=== PATIENT | female | born 1955 | race Caucasian/White ===

== ENCOUNTER 2019-07-22 12:47 | Outpatient (CLI) | payer MEDICAID, SELFPAY ==
--- NOTE | 2019-07-22 13:07 | CT_ITS ---
WS: [id number] CT LUMBAR SPINE TECHNIQUE: Noncontrast CT of the lumbar spine with coronal and sagittal reformatted images. CLINICAL INFORMATION: PSEUDOARTHROSIS OF LUMBAR SPINE COMPARISON: CT April 23, 2019 DLP: 1695.[address] scans at [facility] use at least one of these dose optimization techniques: automat ed exposure control; mA and/or kV adjustment per patient size (includes targeted exams where dose is matched to clinical indication); or iterative reconstruction. FINDINGS: Normal lumbar alignment. No acute compression. Postoperative changes pedicle screw fixation L4-5 with dorsal laminectomy defects. Interconnecting rods. Slight anterolisthesis L4 on L5 measuring 4 mm is stable. No evidence of hardware loosening. L1-L2: Normal. L2-L3: Normal. L3-L4: Mild disc bulging with endplate ridging. Moderate facet arthropathy. Mild central canal stenos is. Foramen are patent. L4-L5: Grade 1 anterolisthesis L4 on L5 is stable. Mild left and no significant right foraminal narro wing. Spinal canal is patent. Decompressive laminectomy. L5-S1: Mild disc bulging and osteophytic ridging. Vacuum disc phenomenon. Moderate right and mild lef t bony foraminal narrowing. Spinal canal is patent. Adrenal glands are normal. Aortic calcification. Visualized pelvic bony structures: Normal. Paravertebral soft tissues: Normal. CT/CT lumbar spine wo con* [id number] IMPRESSION: 1. Stable postoperative changes L4-5 pedicle screw fixation with decompressive laminectomies and dorsal lateral bone graft material. No evidence of hardware loosening. 2. Stable grade 1 anterolisthesis L4 on L5 measuring 4 mm. 3. Mild central canal stenosis L3-4. 4. Mild to moderate bony foraminal narrowing worse at right L5-S1.
== END 2019-07-22 12:48 | disposition home or self-care (01) ==
LOC: RAD 12:53
PROVIDERS: Family Provider Family Medicine; PCP Family Medicine; Visit Provider Licensed Practical Nurse
DX: S32.009K Unspecified fracture of unspecified lumbar vertebra, subsequent encounter for fracture with nonunion (principal); X58.XXXD Exposure to other specified factors, subsequent encounter; M48.061 Spinal stenosis, lumbar region without neurogenic claudication
CPT/HCPCS: 72131

== ENCOUNTER → 2019-09-04 12:41 | Outpatient (BNVA) | payer MEDICAID, SELFPAY | PROVIDERS: Family Provider Family Medicine; PCP Family Medicine; Visit Provider Nurse Practitioner Psychiatric/Mental Health | DX: F32.4 Major depressive disorder, single episode, in partial remission (principal); F17.200 Nicotine dependence, unspecified, uncomplicated | CPT/HCPCS: 99214 ==

== ENCOUNTER 2019-10-28 13:51 | Outpatient (CLI) | payer MEDICAID, SELFPAY ==
--- NOTE | 2019-10-28 14:00 | CT_ITS ---
WS: [id number] CT LUMBAR SPINE TECHNIQUE: Noncontrast CT of the lumbar spine with coronal and sagittal reformatted images. CLINICAL INFORMATION: f/u lumbar spinal fusion COMPARISON: July 22, 2019 DLP: 1802.[address] scans at [facility] use at least one of these dose optimization techniques: automat ed exposure control; mA and/or kV adjustment per patient size (includes targeted exams where dose is matched to clinical indication); or iterative reconstruction. FINDINGS: Normal lumbar alignment. No acute compression fractures. Postoperative changes pedicle screw fixation L4-5 with dorsal laminectomy defects and interconnecting rods. Slight anterolisthesis L4 on L5 measu ring 4 mm is stable. No evidence of hardware loosening. L1-L2: Normal. L2-L3: Normal. L3-L4: Mild disc bulging with endplate ridging. Moderate facet arthropathy. Moderate central canal st enosis. Foramen are patent. L4-L5: Grade 1 anterolisthesis L4 on L5 is stable. Mild left and no significant right foraminal narro wing. Spinal canal is patent. Decompressive laminectomy. L5-S1: Mild disc bulging and osteophytic ridging. Vacuum disc phenomenon. Moderate right and mild lef t bony foraminal narrowing. Spinal canal is patent. Aortic calcification. No significant aneurysm. Adrenal glands are normal. CT/CT lumbar spine wo con* [id number] IMPRESSION: 1. Stable postoperative changes L4-5 pedicle screw fixation with decompressive laminectomies and dorsal lateral bone graft material. No evidence of hardware l oosening. 2. Stable grade 1 anterolisthesis L4 on L5 measuring 4 mm. 3. Moderate central canal stenosis L3-4. 4. Mild to moderate bony foraminal narrowing described above worse at right L5- S1. 5. No significant interval changes since July 22, 2019
== END 2019-10-28 13:52 | disposition home or self-care (01) ==
LOC: RADWPI 13:54
PROVIDERS: Family Provider Family Medicine; PCP Family Medicine; Visit Provider Specialist
DX: Z98.1 Arthrodesis status (principal); M48.061 Spinal stenosis, lumbar region without neurogenic claudication; M48.07 Spinal stenosis, lumbosacral region
CPT/HCPCS: 72131

== ENCOUNTER → 2019-12-11 07:58 | Outpatient (BNVA) | payer MEDICAID, SELFPAY | PROVIDERS: Family Provider Family Medicine; PCP Family Medicine; Visit Provider Nurse Practitioner Psychiatric/Mental Health | DX: F32.4 Major depressive disorder, single episode, in partial remission (principal); G89.29 Other chronic pain; F41.9 Anxiety disorder, unspecified | CPT/HCPCS: 99212 ==

== ENCOUNTER → 2020-03-02 09:14 | Outpatient (BNVA) | payer MEDICAID, SELFPAY | PROVIDERS: Family Provider Family Medicine; PCP Family Medicine; Visit Provider Nurse Practitioner Psychiatric/Mental Health | DX: F32.4 Major depressive disorder, single episode, in partial remission (principal); G89.29 Other chronic pain; F41.9 Anxiety disorder, unspecified | CPT/HCPCS: G0463 ==

== ENCOUNTER → 2020-05-18 11:11 | Outpatient (BNVA) | payer MEDICAID, SELFPAY | PROVIDERS: Family Provider Family Medicine; PCP Family Medicine; Visit Provider Family Medicine Adult Medicine | DX: Z00.00 Encounter for general adult medical examination without abnormal findings (principal) | CPT/HCPCS: 88175 ==

== ENCOUNTER → 2020-05-25 07:35 | Outpatient (BNVA) | payer MEDICAID, SELFPAY | PROVIDERS: Family Provider Family Medicine; PCP Family Medicine; Visit Provider Nurse Practitioner Psychiatric/Mental Health | DX: F32.4 Major depressive disorder, single episode, in partial remission (principal) | CPT/HCPCS: 99211; G0463 ==

== ENCOUNTER → 2020-06-08 10:18 | Outpatient (BNVA) | payer MEDICAID, SELFPAY | PROVIDERS: Family Provider Family Medicine; PCP Family Medicine Adult Medicine; Visit Provider Licensed Practical Nurse | DX: M51.17 Intervertebral disc disorders with radiculopathy, lumbosacral region (principal); M43.16 Spondylolisthesis, lumbar region; Z98.1 Arthrodesis status; F17.210 Nicotine dependence, cigarettes, uncomplicated | CPT/HCPCS: 99213 ==

== ENCOUNTER 2020-06-22 10:51 | Outpatient (CLI) | payer MEDICAID, SELFPAY ==
--- NOTE | 2020-06-22 11:30 | MM_ITS ---
WS: [id number] BILATERAL SCREENING DIGITAL MAMMOGRAM WITH CAD HISTORY: wellness COMPARISON: 01/03/2019 and 01/01/2018 Bilateral CC and MLO views submitted. Computer aided detection analyzed. Breast composition: There are scattered areas of fibroglandular density. No suspicious masses, microc alcifications or architectural distortion. Benign calcification in the central LEFT breast. MM/[place] [id number] IMPRESSION: BI-RADS: 2-Benign FOLLOW UP: 1 Year Follow-up
== END 2020-06-22 10:52 | disposition home or self-care (01) ==
LOC: RADSHAW 10:53
PROVIDERS: PCP Family Medicine Adult Medicine; Visit Provider Family Medicine Adult Medicine
DX: Z12.31 Encounter for screening mammogram for malignant neoplasm of breast (principal)
CPT/HCPCS: 77067

== ENCOUNTER 2020-06-28 10:31 | Outpatient (CLI) | payer MEDICAID, SELFPAY ==
--- NOTE | 2020-06-28 10:36 | MR_ITS ---
WS: [id number] MRI LUMBAR SPINE WITH CONTRAST TECHNIQUE: Sagittal T1, T2 and STIR imaging. Axial T1 and T2 imaging. Post gadolinium imaging was obt ained. CLINICAL INFORMATION: M51.17 - Intervertebral disc disorders with radiculopathy, lumbosacral region COMPARISON: MRI 7 FINDINGS: Normal lumbar alignment. No acute compression. Postoperative changes pedicle screw fixation L4-5. Dis c desiccation worse at this level. Postoperative changes are new since 2018 with spinal canal decompr ession. L1-L2: Normal. L2-L3: Mild annular bulging. Mild facet arthropathy. Spinal canal and foramen are patent. L3-L4: Mild annular bulging with mild central canal stenosis. Impingement on the left greater than ri ght subarticular recess. Moderate facet arthropathy. Foramen are patent. L4-L5: Pedicle screw fixation with laminectomy defects. Spinal canal and foramen are patent. L5-S1: Pedicle screw fixation. Disc osteophytic ridging. Moderate right and no significant left anastacio inal narrowing. Slight encroachment traversing S1 nerve roots. Mild facet arthropathy. Normal postoperative enhancement. MR/MR lumbar spine wo/w con [id number] IMPRESSION: 1. Postoperative changes pedicle screw fixation L4-5 with decompressive kristin ctomy defects new since 2018. 2. Mild disc bulging L3-4 progressed compared to previous with mild narrowing of the left greater than right subarticular recess and mild central canal steno sis. Moderate facet arthropathy at this level. 3. Spinal canal is patent at the L4-L5 and L5-S1 surgical levels. 4. Moderate right L5-S1 bony foraminal narrowing.
== END 2020-06-28 10:32 | disposition home or self-care (01) ==
LOC: RADWPI 10:34
PROVIDERS: PCP Family Medicine Adult Medicine; Visit Provider Licensed Practical Nurse
DX: M51.17 Intervertebral disc disorders with radiculopathy, lumbosacral region (principal); M43.16 Spondylolisthesis, lumbar region; Z98.1 Arthrodesis status
CPT/HCPCS: 72158; A9579

== ENCOUNTER → 2020-08-10 08:01 | Outpatient (BNVA) | payer MEDICAID, SELFPAY | PROVIDERS: PCP Family Medicine Adult Medicine; Visit Provider Nurse Practitioner Psychiatric/Mental Health | DX: F32.4 Major depressive disorder, single episode, in partial remission (principal); F41.9 Anxiety disorder, unspecified; G89.29 Other chronic pain | CPT/HCPCS: 99213 ==

== ENCOUNTER → 2020-11-04 08:39 | Outpatient (BNVA) | payer MEDICAID, SELFPAY | PROVIDERS: PCP Family Medicine Adult Medicine; Visit Provider Nurse Practitioner Psychiatric/Mental Health | DX: F32.4 Major depressive disorder, single episode, in partial remission (principal); F41.9 Anxiety disorder, unspecified; G89.29 Other chronic pain | CPT/HCPCS: 99214 ==

== ENCOUNTER → 2021-01-07 11:50 | Outpatient (BNVA) | payer MEDICAID, SELFPAY | PROVIDERS: PCP Family Medicine Adult Medicine; Visit Provider Family Medicine Adult Medicine | DX: E78.5 Hyperlipidemia, unspecified (principal); I10 Essential (primary) hypertension; Z13.6 Encounter for screening for cardiovascular disorders; Z79.899 Other long term (current) drug therapy | CPT/HCPCS: 80053; 80061; 83036; 84443; 85025 ==

== ENCOUNTER → 2021-01-17 07:19 | Outpatient (BNVA) | payer MEDICAID, SELFPAY | PROVIDERS: PCP Family Medicine Adult Medicine; Visit Provider Nurse Practitioner Psychiatric/Mental Health | DX: F32.4 Major depressive disorder, single episode, in partial remission (principal); F41.9 Anxiety disorder, unspecified; G89.29 Other chronic pain | CPT/HCPCS: 99214 ==

== ENCOUNTER → 2021-02-14 07:51 | Outpatient (BNVA) | payer MEDICAID, SELFPAY | PROVIDERS: PCP Family Medicine Adult Medicine; Visit Provider Nurse Practitioner Psychiatric/Mental Health | DX: F32.4 Major depressive disorder, single episode, in partial remission (principal); F41.9 Anxiety disorder, unspecified; G89.29 Other chronic pain | CPT/HCPCS: 99214 ==

== ENCOUNTER 2021-03-30 10:29 | Emergency (ER) | payer MEDICAID, SELFPAY ==
[2021-03-30 10:45] VITALS: BP 168/71; PULSE 91; RESP 16; TEMP 36.7; O2SAT 95; BMI 25.4
--- NOTE | 2021-03-30 11:14 | XR_ITS ---
WS: [id number] Exam: XR ribs LT mn 3V w CXR1V [id number] Date/Time of Exam: 03/30/2021 11:14 AM Reason For Exam: pain No acute left rib fracture or pneumothorax. The lungs are hyperinflated and clear. Normal cardiomedia stinal structures. No pleural effusions. XR/XR ribs LT mn 3V w CXR1V [id number] IMPRESSION: 1. No acute cardiopulmonary finding. 2. No acute left rib fracture or pneumothorax.
--- NOTE | 2021-03-30 11:15 | ECG_ITS ---
[facility] Test Date: 2021-03-30 Pat Name: Polina Merida Department: Room: Gender: Female Store Person: : 1955 Requested By: Ty Barbosa Order Number: [id number] Garrett MD: Shivani Alexander M.D. Measurements Intervals [place] Rate: 68 P: 63 OR: 154 QRS: 6 QRSD: 70 T: 49 QT: 387 QTc: 412 Interpretive Statements SINUS RHYTHM ANTEROSEPTAL MYOCARDIAL INFARCTION , OF INDETERMINATE AGE [40+ ms Q WAVE IN V1-V4] No previous ECG available for comparison Electronically Signed On 03-30-2021 21:30:05 CDT by Shivani Alexander M.D. [email or web address] Travel/store/NU/[id number] f
--- NOTE | 2021-03-30 11:20 | W.ED.GENADLT ---
HPI - General Adult General: Chief complaint: General Medical Stated complaint: Knot on left side, nausea Time Seen by Provider: 03/30/21 10:31 History of Present Illness: HPI narrative: 65-year-old female presents emergency room complaining of abdominal discomfort describes having a knot on the left side of her upper abdomen and her abdomen swelling. States she woke up with the pain. She denies any dysuria urgency or frequency no vomiting or diarrhea. No fever sweats or chills. No radiation of the pain. Onset (ago): day(s) Location: chest Radiation: non-radiation Severity: mild Pain Consistency: intermittent Relieving factors: rest Exacerbating factors: movement Associated symptoms: Reports chest pain (Left lower ribs); Deny confusion, cough, diaphoresis, decreased appetite, dyspnea, fevers/chills, headache(s), malaise, nausea, rash, palpitations, seizures, vomiting or weakness Treatments prior to arrival: none Review of Systems Const: Denies: malaise or diaphoresis ENMT: Denies: throat pain, ear or mastoid pain, nasal discharge or nasal congestion Card: Reports: chest pain (Left lower ribs); Denies: palpitations Resp: Denies: dyspnea GI: Denies: nausea or vomiting : Denies: flank pain, difficulty voiding, dysuria, urinary frequency or urinary urgency Skin/Breast: Denies: rash Neuro: Denies: headache(s) or confusion PFS ED PFSH: Medical History Acquired hypothyroidism Allergic rhinitis due to allergen Anxiety and depression Benign positional vertigo Bipolar disorder Chronic congestion of paranasal sinus COPD (chronic obstructive pulmonary disease) Dyslipidemia GERD (gastroesophageal reflux disease) Hyperlipidemia Hypertension Intervertebral disc disorder with radiculopathy of lumbosacral region Major depressive disorder in partial remission Nicotine dependence She rolls her own cigarettes and usually smokes at least 6/day, as noted on her last visit note. Today she does not quantify the amount. She is not interested in smoking cessation at this time. Pseudarthrosis following spinal fusion Spondylolisthesis, lumbar region Stress incontinence Surgical History H/O tubal ligation (~1989) H/O: hysterectomy (~1990) History of lumbar fusion (10/21/18) 10/21/2018 Dr. Emani Horowitz. L4-L5 laminectomy/pedicle screw-jorge fixation/transverse process fusion. Hx of tonsillectomy (~1963) S/P lumbar spinal fusion Family History Mother Hypertension Heart disease Cancer Liver and Ovary Father Hypertension Heart disease Stroke Brother Stroke Sister Cancer Breast Family/Other Cancer Paternal 1st cousin, colon cancer Grandmother Cancer Maternal Liver and Ovary Denies family history of Anesthesia complication Bleeding disorder Social History Smoking and tobacco status: current every day smoker cigarettes Alcohol intake: never Lives independently: Yes Household members: spouse Marital status: Current occupational status: disabled History of recent travel: No Physical Exam Const: COMMON NORMALS: no acute distress GENERAL APPEARANCE: cooperative and comfortable ORIENTATION/CONSCIOUSNESS: Yes awake, Yes oriented to person, Yes oriented to place and Yes oriented to time HENMT: COMMON NORMALS: normocephalic, atraumatic and hearing grossly normal bilaterally HEAD & SCALP: normocephalic and atraumatic Neck/C-Spine: COMMON NORMALS: no JVD Chest: CHEST: Yes localized rib tenderness with anteroposterior compression (Left lower ribs at the anterior axillary line) Resp: COMMON NORMALS: normal respiratory effort, No retractions, No use of accessory muscles and clear to auscultation bilaterally AUSCULTATION: clear to auscultation bilaterally Cardio: COMMON NORMALS: no JVD, regular rate, regular rhythm and No murmurs present (Cardio) RATE: regular rate RHYTHM: regular rhythm GI: COMMON NORMALS: Soft to palpation and No hepatosplenomegaly present AUSCULTATION: Yes normoactive bowel sounds PALPATION: Yes Soft to palpation, No Tenderness to palpation present (GI), No Guarding due to palpation present (GI) and Yes No hepatosplenomegaly present Extremity: COMMON NORMALS: normal to inspection, capillary refill normal, no clubbing, cyanosis or edema, no calf tenderness and no pedal edema Neuro: SENSORIUM/ORIENTATION: Yes oriented to person, Yes oriented to place and Yes oriented to time Skin: COMMON NORMALS: no rashes or lesions noted GENERAL SKIN EXAM: no rashes or lesions noted Course Vital Signs: Vital signs: Vital Signs Temperature 98.2 F 03/30/21 12:34 Pulse Rate 89 03/30/21 12:34 Respiratory Rate 16 03/30/21 10:45 Blood Pressure 164/73 03/30/21 12:34 Pulse Oximetry 96 03/30/21 12:34 MDM - General Adult MDM Narrative: Medical decision making narrative: Labs imaging and EKG reviewed as on the chart. Pain is reproducible with palpation along the lower ribs. We will go and discharge the patient home she did have a mild cystitis which we will treat her with Macrobid. Any worsening or change symptoms return. Lab Data: Labs: Lab Results 03/30/21 03/30/21 03/30/21 11:53 11:53 12:04 WBC 7.7 10^3/uL 10^3/ uL (4.0-10.0) RBC 4.58 10^6/uL 10^6 /uL (4.1-5.3) Hgb 13.4 g/dL g/dL (11.5-15.3) Hct 41.2 % % (37.0-47.0) MCV 90.0 fl fl (81-99) MCH 29.3 pg pg (28.0-34.0) MCHC 32.5 g/dL g/dL (30.0-36.0) RDW 15.9 % H % (12.1-15.1) Plt Count 317 10^3/cmm 10^3 /cmm (130-400) MPV 10.7 fL H fL (7.4-10.4) Neut % (Auto) 62.7 % % Lymph % (Auto) 25.2 % % Gates % (Auto) 9.9 % % Eos % (Auto) 1.4 % % Baso % (Auto) 0.5 % % Neut # (Auto) 4.79 10^3/uL 10^3 /uL (1.8-7.7) Lymph # (Auto) 1.9 10^3/uL 10^3/ uL (0.8-4.8) Gates # (Auto) 0.8 10^3/uL 10^3/ uL (0.2-0.9) Eos # (Auto) 0.1 10^3/uL 10^3/ uL (0.0-0.8) Baso # (Auto) 0.0 10^3/uL 10^3/ uL (0.0-0.1) Nucleated RBC % (a uto) 0 % % Nucleated RBCs # 0.0 /100WBC /100W BC Sodium 136 mmol/L mmol/L (136-145) Potassium 4.1 mmol/L mmol/L (3.5-5.1) Chloride 102 mmol/L mmol/L (98-107) Carbon Dioxide 24 mmol/L mmol/L (22-29) Anion Gap 14.1 (5-19) BUN 11 mg/dL mg/dL (8-23) Creatinine 0.6 mg/dL mg/dL (0.5-0.9) GFR Calculation 101.0 mL/min mL/m in (90-130) Glucose 95 mg/dL mg/dL (65-115) Calculated Osmolal ity 281 mOsm/kg L mOs m/kg (285-295) Calcium 9.6 mg/dL mg/dL (8.5-10.5) Total Bilirubin 0.2 mg/dL mg/dL (0.15-1.2) AST 22 U/L U/L (0-32) ALT 14 U/L U/L (0-33) Alkaline Phosphata se 70 IU/L IU/L (35-105) Total Protein 7.8 g/dL g/dL (6.6-8.7) Albumin 4.2 g/dL g/dL (3.5-5.2) Globulin 3.6 g/dL g/dL (1.3-4.6) Urine Color Straw (Yellow) Urine Appearance Sl hazy (CLEAR) Urine pH 6.5 (5-7) Ur Specific Gravit y 1.005 (1.005-1.030) Urine Protein Neg (Negative) Urine Glucose (UA) Norm (Normal) Urine Ketones Negative (Negative) Urine Blood Neg (Negative) Urine Nitrate Negative (Negative) Urine Bilirubin Neg (Negative) Urine Urobilinogen Norm mg/dL mg/dL (Negative) Ur Leukocyte Erica ase 1+ H (Negative) Urine RBC 0-4 /hpf H /hpf (0-2) Urine WBC 10-15 /hpf H /hpf (0-5) Ur Squamous Epith Cells 0-4 /hpf H /hpf (0-5) Amorphous Sediment Not Reportable Urine Bacteria 4+ /hpf H /hpf (NONE) Discharge Plan Discharge Patient Disposition: Home Clinical Impression: Rib pain on left side, Cystitis Condition: Stable Prescriptions: New Macrobid 100 mg capsule 100 mg PO Q12H 7 Days Qty: 14 RF: 0 No Action aspirin 81 mg tablet,delayed release (DR/EC) 81 mg PO DAILY RF: 0 naproxen sodium 220 mg tablet 440 mg PO BID PRN (Reason: Pain) RF: 0 meclizine 25 mg tablet 25 mg PO TID PRN (Reason: dizziness) Qty: 90 RF: 5 vitamin B complex [B Complex-Vitamin B12] Tablet 1 tab PO EVERY OTHER DAY RF: 0 cholecalciferol (vitamin D3) 25 mcg (1,000 unit) capsule 25 mcg PO EVERY OTHER DAY RF: 0 metoprolol succinate 25 mg tablet extended release 24 hr 25 mg PO DAILY Qty: 30 RF: 5 clonazepam 0.5 mg tablet 0.25 mg PO BID Qty: 30 RF: 2 venlafaxine 75 mg capsule,extended release 24hr 75 mg PO QAM Qty: 30 RF: 1 lisinopril 20 mg tablet 20 mg PO DAILY Qty: 30 RF: 3 simvastatin 40 mg tablet 40 mg PO DAILY Qty: 90 RF: 2 fluticasone propionate 50 mcg/actuation spray,suspension See Rx Instructions .ROUTE .COMPLEX Qty: 16 RF: 5 oxybutynin chloride 10 mg tablet extended release 24hr See Rx Instructions .ROUTE .COMPLEX Qty: 90 RF: 2 Asparagus Extract 1 cap PO EVERY OTHER DAY RF: 0 potassium 99 mg Tablet 99 mg PO EVERY OTHER DAY RF: 0 omeprazole 20 mg Capsule,Delayed Release(Dr/Ec) 20 mg PO DAILY RF: 0 Discharge Orders: Discharge ED (Routine); Ordered 03/30/21 Ordered By: Ty Saunders Referrals: John Hall MD [Primary Care Provider] - Discharge Diet: Usual diet Discharge Activity: Increase activity as tolerated Patient Instructions: Opioid Safety Activity Restrictions/Additional Instructions: Tylenol or ibuprofen for the rib pain. Started on antibiotics for the cystitis. Increase fluids follow-up with primary care doctor. Coding Level of Care Code ED Ultrasound Applications Specialist for Chg Fwd Exam Comprehensive
[2021-03-30 11:58] LABS: Basophils % 0.5 %; Eosinophils # 0.1 10^3/uL (0.0-0.8); Eosinophils % 1.4 %; Hematocrit 41.2 % (37.0-47.0); Hemoglobin 13.4 g/dL (11.5-15.3); Lymphocytes # 1.9 10^3/uL (0.8-4.8); Lymphocytes % 25.2 %; Mean Corpuscular HGB Conc 32.5 g/dL (30.0-36.0); Mean Corpuscular Hemoglobin 29.3 pg (28.0-34.0); Mean Platelet Volume 10.7 fL (7.4-10.4); Monocytes # 0.8 10^3/uL (0.2-0.9); Monocytes % 9.9 %; Neutrophils # 4.79 10^3/uL (1.8-7.7); Neutrophils % 62.7 %; Nucleated Red Blood Cells % 0 %; Platelet Count 317 10^3/cmm (130-400); Red Blood Count 4.58 10^6/uL (4.1-5.3); Red Cell Distribution Width 15.9 % (12.1-15.1); White Blood Count 7.7 10^3/uL (4.0-10.0)
[2021-03-30 12:14] LABS: Alanine Aminotransferase 14 U/L (0-33); Albumin Level 4.2 g/dL (3.5-5.2); Alkaline Phosphatase 70 IU/L (35-105); Aspartate Amino Transferase 22 U/L (0-32); Blood Urea Nitrogen 11 mg/dL (8-23); Calcium 9.6 mg/dL (8.5-10.5); Carbon Dioxide 24 mmol/L (22-29); Chloride 102 mmol/L (98-107); Globulin 3.6 g/dL (1.3-4.6); Glucose 95 mg/dL (65-115); Osmolality Calculated 281 mOsm/kg (285-295); Sodium 136 mmol/L (136-145); Total Bilirubin 0.2 mg/dL (0.15-1.2); Total Protein 7.8 g/dL (6.6-8.7)
[2021-03-30 12:15] LABS: Anion Gap 14.1 (5-19); Potassium 4.1 mmol/L (3.5-5.1)
[2021-03-30 12:17] LABS: Urine Color Straw (Yellow)
[2021-03-30 12:18] LABS: Add Urine Microscopic? YES; Bacteria Urine 4+ /hpf; Bilirubin Urine Neg (Negative); Blood Urine Neg (Negative); Glucose Urine UA Norm (Normal); Ketones Urine Negative (Negative); Leukocyte Esterase Urine 1+ (Negative); Nitrate Urine Negative (Negative); Protein Urine Neg (Negative); RBC Urine 0-4 /hpf (0-2); Specific Gravity, Urine 1.005 (1.005-1.030); Squamous Epithelial Cell Urine 0-4 /hpf (0-5); Urine Appearance SL Hazy (CLEAR); Urobilinogen Urine Norm (Negative); pH Urine 6.5 (5-7)
[2021-03-30 12:19] LABS: Add Urine Culture? Yes
[2021-03-30] MEDS: sodium chloride 0.9% 1,000 ML 999 ML IV (12:25)
[2021-03-30] MEDS: ondansetron 2 mg/ML SDV 2 mL 4 MG IVP (12:25)
[2021-03-30 12:34] VITALS: BP 164/73; PULSE 89; TEMP 36.8; O2SAT 96
== END 2021-03-30 13:09 | disposition home or self-care (01) ==
PROVIDERS: Emergency Provider Family Medicine; PCP Family Medicine Adult Medicine
DX: N30.90 Cystitis, unspecified without hematuria (principal); R07.81 Pleurodynia; Z79.82 Long term (current) use of aspirin; J44.9 Chronic obstructive pulmonary disease, unspecified; E78.5 Hyperlipidemia, unspecified; I10 Essential (primary) hypertension; F17.210 Nicotine dependence, cigarettes, uncomplicated
CPT/HCPCS: 71101; 80053; 81001; 85025; 87077; 87086; 87186; 93005; 96361; 96374; 99283; J2405; J7030

== ENCOUNTER → 2021-04-18 07:36 | Outpatient (BNVA) | payer MEDICAID, SELFPAY | PROVIDERS: PCP Family Medicine Adult Medicine; Visit Provider Nurse Practitioner Psychiatric/Mental Health | DX: F32.4 Major depressive disorder, single episode, in partial remission (principal); F41.9 Anxiety disorder, unspecified; G89.29 Other chronic pain | CPT/HCPCS: 99213 ==

== ENCOUNTER → 2021-07-11 08:16 | Outpatient (BNVA) | payer MEDICAID, SELFPAY | PROVIDERS: PCP Family Medicine Adult Medicine; Visit Provider Nurse Practitioner Psychiatric/Mental Health | DX: F32.4 Major depressive disorder, single episode, in partial remission (principal); F41.9 Anxiety disorder, unspecified; G89.29 Other chronic pain | CPT/HCPCS: 99214 ==

== ENCOUNTER → 2021-08-15 07:29 | Outpatient (BNVA) | payer MEDICAID, SELFPAY | PROVIDERS: PCP Family Medicine Adult Medicine; Visit Provider Nurse Practitioner Psychiatric/Mental Health | DX: F32.4 Major depressive disorder, single episode, in partial remission (principal); F41.9 Anxiety disorder, unspecified; G89.29 Other chronic pain | CPT/HCPCS: 99213 ==

== ENCOUNTER → 2021-10-10 07:34 | Outpatient (BNVA) | payer MEDICAID, SELFPAY | PROVIDERS: PCP Family Medicine Adult Medicine; Visit Provider Nurse Practitioner Psychiatric/Mental Health | DX: F32.4 Major depressive disorder, single episode, in partial remission (principal); F41.9 Anxiety disorder, unspecified; G89.29 Other chronic pain | CPT/HCPCS: 99213 ==

== ENCOUNTER → 2022-01-05 13:00 | Outpatient (BNVA) | payer MEDICAID, SELFPAY | PROVIDERS: PCP Family Medicine Adult Medicine; Visit Provider Nurse Practitioner Psychiatric/Mental Health | DX: G89.29 Other chronic pain (principal) | CPT/HCPCS: 99213 ==

== ENCOUNTER 2022-02-13 09:01 | Outpatient (CLI) | payer MEDICAID, SELFPAY ==
--- NOTE | 2022-02-13 09:08 | MM_ITS ---
WS: [id number] VIEWS: MLO and CC views both breasts. 3D digital tomosynthesis is also included in this exam. Comparison made with prior exam of 11/01/2009, 11/11/2010, 04/20/2015, 01/01/2018, 01/03/2019, 06/22/2020.. Findings: There was no sign of mass, architectural distortion or suspicious calcification in either breast. Sc attered fibroglandular densities MM/[place] [id number] Impression: BI-RADS: 2-Benign FOLLOW-UP: 1 Year Follow-up This mammogram was also analyzed by the Computer Aided Detection System R2 Imag e Design Draftsman.
== END 2022-02-13 09:02 | disposition home or self-care (01) ==
LOC: RAD 09:02
PROVIDERS: PCP Family Medicine Adult Medicine; Visit Provider Family Medicine Adult Medicine
DX: Z12.31 Encounter for screening mammogram for malignant neoplasm of breast (principal)
CPT/HCPCS: 77063; 77067

== ENCOUNTER 2023-03-03 15:51 | Observation (INO) | payer MEDICARE, MEDICAID, SELFPAY ==
[2023-03-03 15:53] VITALS: BP 166/74; PULSE 101; RESP 18; BMI 24.4
[2023-03-03 16:01] VITALS: PULSE 103; RESP 24; O2SAT 94
[2023-03-03] MEDS: methylPREDNISolone sod succ 125 MG in water for injection-sterile 2 ML 24 MG IVP (16:43)
[2023-03-03] MEDS: diphenhydrAMINE 50 mg/mL SDV 1mL 25 MG IVP (16:45)
[2023-03-03] MEDS: ondansetron 2 mg/ML SDV 2 mL 4 MG IVP (16:46)
[2023-03-03] MEDS: acetaminophen 1,000 MG/100 ML PIGGYBACK 400 MG IV (16:48)
[2023-03-03] MEDS: sodium chloride 0.9% 1,000 ML 999 ML IV (16:51)
--- NOTE | 2023-03-03 16:54 | ED_ITS ---
HPI - General Adult General: Chief complaint: General Medical Stated complaint: hornets stings mulitple, weakness, Time Seen by Provider: 03/03/23 16:03 History of Present Illness: 67-year-old female presents to the emergency department chief complaint of having being stung by multiple hornets/wasp prior to arrival the patient was trying in her storage barn with her which when they open the barn door there was huge wasp nest in the inside and it stung the patient multiple times. Patient presents to the ER she reports that she took some Benadryl reports no throat tightness reports history of allergic reaction minimal to moderate to hornets and bee stings patient does not endorse any throat tightness any wheezing or shortness of breath or any other concerns. Patient does endorse moderate pain located to locations over her multiple stings were noted patient was stung on the scalp on the torso on the legs and on the arms. Associated symptoms: Reports rash; Deny chest pain, dyspnea, headache(s), nausea, palpitations or vomiting Review of Systems General: Reports: 10 or more systems reviewed and unremarkable except in HPI and below Const: Denies: fever(s) or chills Eyes: Denies: change in vision or blurry vision Card: Denies: chest pain or palpitations Resp: Denies: dyspnea or productive cough GI: Denies: abdominal pain, nausea or vomiting : Denies: flank pain Musc: Denies: extremity pain or extremity swelling Skin/Breast: Reports: rash, erythema, skin tenderness, skin swelling and sores Neuro: Denies: headache(s) Psych: Denies: anxiety or depression Bertin/Lymph: Denies: easy bleeding All/Imm: Denies: urticaria, throat swelling or facial swelling PFSH ED PFSH: Medical History Acquired hypothyroidism Allergic rhinitis due to allergen Bilateral sacroiliitis Bipolar disorder COPD (chronic obstructive pulmonary disease) Dyslipidemia Epidermal inclusion cyst GERD (gastroesophageal reflux disease) Hyperlipidemia Hypertension Inflamed seborrheic keratosis of left cheek 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 Today she does not quantify the amount. She is not interested in smoking cessation at this time. Nonfamilial nocturnal leg cramps Pain in thoracic spine Pseudarthrosis following spinal fusion Psychiatric care Spondylolisthesis, lumbar region Surgical History H/O tubal ligation (~1989) H/O: hysterectomy (~1990) History of lumbar fusion (10/21/18) 10/21/2018 Dr. Emani Horowitz. L4-L5 laminectomy/pedicle screw-jorge fixation/transverse process fusion. Hx of tonsillectomy (~1962) S/P lumbar spinal fusion Family History Mother Hypertension Heart disease Cancer Liver and Ovary Father Hypertension Heart disease Stroke Brother Stroke Sister Cancer Breast Family/Other Cancer Paternal 1st cousin, colon cancer Grandmother Cancer Maternal Liver and Ovary Denies family history of Anesthesia complication Bleeding disorder Social History Smoking and tobacco status: current every day smoker (1ppd) cigarettes Alcohol intake: never Desire information about alcohol rehabilitation?: No Counseling given: No Substance/Drug Use: never Desire information about substance/drug rehabilitation?: No Counseling given: No Adopted: No Caregiver/support person: No Lives independently: Yes Household members: spouse Marital status: Current occupational status: disabled Physical Exam Const: COMMON NORMALS: patient oriented x3 and healthy appearing; apparent distress (Patient appears to be in mild distress quite anxious mild tremors ) HENMT: COMMON NORMALS: normocephalic and atraumatic HEAD & SCALP: normocephalic and atraumatic Eye: COMMON NORMALS: Equal, round and reactive pupils present and EOMs intact bilaterally PUPIL: Yes Equal, round and reactive pupils present Neck/C-Spine: COMMON NORMALS: full ROM, supple and no JVD Lymph: LYMPHATIC: no lymphadenopathy noted Chest: COMMONS NORMALS: normal inspection of the chest and normal palpation of entire chest wall Resp: COMMON NORMALS: normal respiratory effort, No retractions and clear to auscultation bilaterally EFFORT & INSPECTION: Yes able to speak in complete sentences and Yes symmetric chest movement AUSCULTATION: clear to auscultation bilaterally Cardio: COMMON NORMALS: no JVD, regular rate and regular rhythm RATE: regular rate and tachycardic RHYTHM: regular rhythm GI: COMMON NORMALS: Normal to inspection, nondistended, normoactive bowel sounds present, Soft to palpation and non-tender INSPECTION: Yes normal to inspection PALPATION: Yes Soft to palpation : COMMON NORMALS: Yes no CVA tenderness BLADDER/KIDNEY EXAM: Yes no CVA tenderness Back/Pelvis: COMMON NORMALS: no CVA tenderness Extremity: COMMON NORMALS: normal to inspection and full ROM Neuro: COMMON NORMALS: patient oriented x3, CN's II-XII intact bilaterally, moves all extremities and no focal motor deficits Psych: COMMON NORMALS: mental status grossly normal, Normal thought process present, cooperative and normal affect THOUGHT PROCESS: Normal thought process present Skin: NARRATIVE SKIN EXAM: Areas of stings with surrounding erythema noted to the torso to the extremities no hives appreciated Course Vital Signs: Vital signs: Vital Signs Pulse Rate 105 H 03/03/23 18:01 Respiratory Rate 18 03/03/23 20:16 Blood Pressure 181/75 03/03/23 18:01 Pulse Oximetry 95 03/03/23 20:16 Oxygen Delivery Me thod Room Air 03/03/23 18:01 MDM - General Adult Medical Decision Making Due to patient's symptoms and condition IV was established IV steroids and Benadryl will be provided basic lab work will be obtained we will continue to follow Patient was observed for several hours her oxygenation was noted to be in the mid 80s on exam no obvious stridor difficulty breathing was appreciated patient was requiring 2 L via nasal cannula patient did require several doses of medication for pain control as well as for high blood pressure she was noted to be somewhat tachycardic which IV fluids did seem to improve discussed the need for admission observation overnight due to her current envenomation due to the multiple hornet/wasp stings. Spoke with Dr. Esqueda hospitalist that has granted acceptance to observation med telemetry. Patient remained in stable condition at this time and is agreeable to observation. Lab Data 03/03/23 16:50 03/03/23 16:50 Radiology Impressions Chest X-Ray 03/03/23 18:25 IMPRESSION: No acute findings. Laboratory Results WBC 22.15 10^3/uL (3.29-11.43) H 03/03/23 16:50 RBC 4.38 10^6/uL (3.85-5.65) 03/03/23 16:50 Hgb 13.00 g/dL (11.27-16.99) 03/03/23 16:50 Hct 39.1 % (36-47) 03/03/23 16:50 MCV 89.3 fl (85-98) 03/03/23 16:50 MCH 29.7 pg (27-33) 03/03/23 16:50 MCHC 33.2 g/dL (30-55) 03/03/23 16:50 RDW 14.0 % (12.1-15.1) 03/03/23 16:50 Plt Count 316 10^3/cmm (157-399) 03/03/23 16:50 MPV 10.4 fL (7.4-10.4) 03/03/23 16:50 Neut % (Auto) 85.3 % 03/03/23 16:50 Lymph % (Auto) 6.4 % 03/03/23 16:50 Nolan % (Auto) 6.7 % 03/03/23 16:50 Eos % (Auto) 0.4 % 03/03/23 16:50 Baso % (Auto) 0.3 % 03/03/23 16:50 Neut # (Auto) 18.90 10^3/uL (1.8-7.7) H 03/03/23 16:50 Lymph # (Auto) 1.4 10^3/uL (0.8-4.8) 03/03/23 16:50 Nolan # (Auto) 1.5 10^3/uL (0.2-0.9) H 03/03/23 16:50 Eos # (Auto) 0.1 10^3/uL (0.0-0.8) 03/03/23 16:50 Baso # (Auto) 0.1 10^3/uL (0.0-0.1) 03/03/23 16:50 Nucleated RBC % (auto) 0 % 03/03/23 16:50 Nucleated RBCs # 0.0 /100WBC 03/03/23 16:50 Sodium 131 mmol/L (136-145) L 03/03/23 16:50 Potassium 3.7 mmol/L (3.5-5.1) 03/03/23 16:50 Chloride 98 mmol/L (98-107) 03/03/23 16:50 Carbon Dioxide 20 mmol/L (22-29) L 03/03/23 16:50 Anion Gap 16.7 (5-19) 03/03/23 16:50 BUN 19 mg/dL (8-23) 03/03/23 16:50 Creatinine 1.2 mg/dL (0.5-0.9) H 03/03/23 16:50 GFR Calculation 45.1 mL/min (90-130) L 03/03/23 16:50 Glucose 120 mg/dL (65-115) H 03/03/23 16:50 Calculated Osmolality 275 mOsm/kg (285-295) L 03/03/23 16:50 Calcium 9.1 mg/dL (8.5-10.5) 03/03/23 16:50 Total Bilirubin 0.2 mg/dL (0.15-1.2) 03/03/23 16:50 AST 50 U/L (0-32) H 03/03/23 16:50 ALT 26 U/L (0-33) 03/03/23 16:50 Alkaline Phosphatase 82 U/L (35-105) 03/03/23 16:50 C-Reactive Protein 3.0 mg/L (0.0-4.9) 03/03/23 16:50 Total Protein 7.1 g/dL (6.6-8.7) 03/03/23 16:50 Albumin 4.2 g/dL (3.5-5.2) 03/03/23 16:50 Globulin 2.9 g/dL (1.3-4.6) 03/03/23 16:50 Discharge Plan Discharge Patient Disposition: Placed in Observation Clinical Impression: Allergic reaction to wasp sting Coding Level of Care Code ED Inspector Eyeglass Frames for Kraig Short
[2023-03-03 17:09] LABS: Basophils # 0.1 10^3/uL (0.0-0.1); Basophils % 0.3 %; Eosinophils # 0.1 10^3/uL (0.0-0.8); Eosinophils % 0.4 %; Hematocrit 39.1 % (36-47); Lymphocytes # 1.4 10^3/uL (0.8-4.8); Lymphocytes % 6.4 %; Mean Corpuscular HGB Conc 33.2 g/dL (30-55); Mean Corpuscular Hemoglobin 29.7 pg (27-33); Mean Corpuscular Volume 89.3 fl (85-98); Mean Platelet Volume 10.4 fL (7.4-10.4); Monocytes # 1.5 10^3/uL (0.2-0.9); Monocytes % 6.7 %; Neutrophils % 85.3 %; Nucleated Red Blood Cells % 0 %; Platelet Count 316 10^3/cmm (157-399); Red Blood Count 4.38 10^6/uL (3.85-5.65); White Blood Count 22.15 10^3/uL (3.29-11.43)
[2023-03-03 17:35] LABS: Alanine Aminotransferase 26 U/L (0-33); Albumin Level 4.2 g/dL (3.5-5.2); Alkaline Phosphatase 82 U/L (35-105); Anion Gap 16.7 (5-19); Aspartate Amino Transferase 50 U/L (0-32); Blood Urea Nitrogen 19 mg/dL (8-23); Calcium 9.1 mg/dL (8.5-10.5); Carbon Dioxide 20 mmol/L (22-29); Chloride 98 mmol/L (98-107); Globulin 2.9 g/dL (1.3-4.6); Glomerular Filtration Rate 45.1 mL/min (90-130); Glucose 120 mg/dL (65-115); Osmolality Calculated 275 mOsm/kg (285-295); Potassium 3.7 mmol/L (3.5-5.1); Sodium 131 mmol/L (136-145); Total Bilirubin 0.2 mg/dL (0.15-1.2); Total Protein 7.1 g/dL (6.6-8.7)
[2023-03-03] MEDS: ketorolac 30 mg/mL INJ 15 MG IVP (17:48)
[2023-03-03] MEDS: diphenhydrAMINE 50 mg/mL SDV 1mL IVP (17:48)
[2023-03-03 18:01] VITALS: BP 181/75; PULSE 105; O2SAT 96
--- NOTE | 2023-03-03 18:25 | XRR_ITS ---
PROCEDURE INFORMATION: Exam: XR Chest Exam date and time: 03/03/2023 6:39 PM Age: 67 years old Clinical indication: Cough and shortness of breath; Additional info: SOB TECHNIQUE: Imaging protocol: Radiologic exam of the chest. Views: 1 view. COMPARISON: CR XR ribs LT mn 3V w CXR1V [id number] 03/30/2021 12:07 PM FINDINGS: Lungs: Unchanged severe hyperinflation/COPD. No consolidation. Prominent calcified granuloma right lower lobe. Pulmonary vascularity is within normal limits. Pleural spaces: Unremarkable. No pleural effusion. No pneumothorax. Heart/Mediastinum: Unremarkable. No cardiomegaly. Bones/joints: No acute abnormality. XR/XR chest 1V portable [id number] IMPRESSION: No acute findings.
[2023-03-03] MEDS: metoprolol tartrate 1 mg/1 mL SDV 5 mL 5 MG IVP (19:35)
[2023-03-03 20:16] VITALS: RESP 18; O2SAT 95
[2023-03-03] MEDS: fentaNYL 50 mcg/mL INJ 2mL IVP (20:16)
[2023-03-03 20:50] VITALS: BP 201/109; PULSE 83; RESP 15; O2SAT 94
[2023-03-03 21:06] VITALS: BP 196/91; PULSE 82; TEMP 36.8; O2SAT 88
--- NOTE | 2023-03-03 21:15 | PM.HP ---
Providers/Chief Complaint Admitting Physician: Gen Esqueda DO Primary Care Provider: John Hall MD Chief Complaint: hornets stings mulitple, weakness, History of Present Illness Polina Merida is a 67 year old female with hypertension, hyperlipidemia, depression, GERD, incontinence and tobacco abuse presents after multiple hornet stings. Patient states that she opened a storage unit and was stung about 20 times by hornets. She denies any allergy to previous stings. She reports pain in her legs where the stings occurred. Patient does not use oxygen at home but is found to have hypoxia in the emergency room. She also has a white blood cell count of 22,000. She denies any shortness of breath throat swelling but she has lost her voice significantly. Denies chest pain. No edema associated with hornet stings. She states she fell after the bee stings and scraped her face. Review of Systems Const: Denies: fever(s) or chills Eyes: Denies: change in vision ENMT: Denies: throat pain or nasal congestion Card: Denies: chest pain or palpitations Resp: Denies: dyspnea or productive cough GI: Denies: abdominal pain, nausea, vomiting or change in stool character : Denies: dysuria Musc: Denies: back pain or extremity pain Skin/Breast: Denies: rash or lesions Neuro: Denies: headache(s) or dizziness Psych: Denies: anxiety or depression Bertin/Lymph: Denies: easy bruising or easy bleeding Medications/Allergies Home Medications Medication Instructions Recorded Confirmed Last Taken Type aspirin 81 mg tablet,delayed 81 mg PO DAILY 07/21/19 12/14/22 03/30/21 History release cholecalciferol (vitamin D3) 25 25 mcg PO EVERY OTHER DAY 08/09/20 12/14/22 03/29/21 History mcg (1,000 unit) capsule vitamin B complex (B 1 tab PO EVERY OTHER DAY 08/09/20 12/14/22 03/29/21 History Complex-Vitamin B12 tablet) potassium 99 mg tablet 99 mg PO EVERY OTHER DAY 03/30/21 12/14/22 03/29/21 History magnesium 200 mg tablet 200 mg PO DAILY 04/14/21 12/14/22 Unknown History acetaminophen 650 mg 650 mg PO Q8H PRN pain #90 tabs 04/18/22 12/14/22 Unknown Rx tablet,extended release fluticasone propionate 50 See Rx Instructions .Route 08/30/22 12/14/22 Unknown Rx mcg/actuation nasal .COMPLEX #16 grams spray,suspension lisinopril 20 mg tablet 20 mg PO DAILY hypertension 90 08/30/22 12/14/22 Unknown Rx days #90 tabs metoprolol succinate 25 mg See Rx Instructions .Route 10/24/22 12/14/22 Unknown Rx tablet,extended release 24 hr .COMPLEX #30 tabs meclizine 25 mg tablet 25 mg PO TID PRN stress/anxiety 11/29/22 12/14/22 Unknown Rx #90 tabs oxybutynin chloride 15 mg 15 mg PO DAILY urinary 11/29/22 12/14/22 Unknown Rx tablet,extended release 24 hr incontinence #90 tabs simvastatin 40 mg tablet See Rx Instructions .Route 12/19/22 Unknown Rx .COMPLEX #90 tabs tramadol 50 mg tablet 50 mg PO BID PRN pain 30 days #60 12/19/22 Unknown Rx tabs omeprazole 20 mg capsule,delayed 20 mg PO DAILY PRN acid reflux #90 12/20/22 Unknown Rx release caps venlafaxine 150 mg 150 mg PO QAM #30 caps 12/26/22 Unknown Rx capsule,extended release 24 hr Allergies Allergy/AdvReac Type Severity Reaction Status Date / Time aspirin Allergy Nausea Verified 01/16/23 12:49 codeine Allergy Rash and Verified 01/16/23 12:49 Itching fluoxetine [From Prozac] Allergy ADR-Confusi Verified 01/16/23 12:49 on ibuprofen Allergy Rash Verified 01/16/23 12:49 meloxicam [From Mobic] Allergy Unconscious Verified 01/16/23 12:49 ness Sulfa (Sulfonamide Allergy Rash Verified 01/16/23 12:49 Antibiotics) trazodone Allergy Rash Verified 01/16/23 12:49 PFSH Acute PFSH: Medical History Acquired hypothyroidism Allergic rhinitis due to allergen Bilateral sacroiliitis Bipolar disorder COPD (chronic obstructive pulmonary disease) Dyslipidemia Epidermal inclusion cyst GERD (gastroesophageal reflux disease) Hyperlipidemia Hypertension Inflamed seborrheic keratosis of left cheek 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 Today she does not quantify the amount. She is not interested in smoking cessation at this time. Nonfamilial nocturnal leg cramps Pain in thoracic spine Pseudarthrosis following spinal fusion Psychiatric care Spondylolisthesis, lumbar region Surgical History H/O tubal ligation (~1989) H/O: hysterectomy (~1990) History of lumbar fusion (10/21/18) 10/21/2018 Dr. Emani Horowitz. L4-L5 laminectomy/pedicle screw-jorge fixation/transverse process fusion. Hx of tonsillectomy (~1962) S/P lumbar spinal fusion Family History Mother Hypertension Heart disease Cancer Liver and Ovary Father Hypertension Heart disease Stroke Brother Stroke Sister Cancer Breast Family/Other Cancer Paternal 1st cousin, colon cancer Grandmother Cancer Maternal Liver and Ovary Denies family history of Anesthesia complication Bleeding disorder Social History Smoking and tobacco status: current every day smoker (1ppd) cigarettes Alcohol intake: never Desire information about alcohol rehabilitation?: No Counseling given: No Substance/Drug Use: never Desire information about substance/drug rehabilitation?: No Counseling given: No Adopted: No Caregiver/support person: No Lives independently: Yes Household members: spouse Marital status: Current occupational status: disabled Vitals/I&O/Wt Last Vital Signs Pulse 83 03/03/23 20:50 Resp 15 03/03/23 20:50 BP 201/109 03/03/23 20:50 Pulse Ox 94 03/03/23 20:50 O2 Del Method Nasal Cannula 03/03/23 20:50 O2 Flow Rate 2 03/03/23 20:50 03/03/23 03/03/23 03/03/23 06:59 14:59 22:59 Intake Total 1102 / 1102 Balance 1102 / 1102 Weight last 48 hrs Weight 56.699 kg Physical Exam Narrative: 67-year-old white female in no acute distress at time of examination. She does appear older than 67. She is malodorous of tobacco. Neurologic: Alert and oriented x3 nonfocal exam HEENT head is normocephalic. She has a few scrapes on her nose forehead and right cheek from falling pupils equal round reactive to light and accommodation extraocular muscles are intact there is no scleral icterus. Nasal and pharyngeal mucosa erythematous. She has upper plate dentures. Neck supple no JVD carotid bruits or lymphadenopathy. Chest: Rises symmetrically with inspiration Cardiac: Distant heart sounds no loud murmur Lungs moderate aeration, clear until forced expiration reveals wheezes and prolonged expiratory phase Abdomen: Soft nontender nondistended positive bowel sounds Extremities. Multiple lesions noted over the anterior thighs and knees. These lesions appear as a insect sting. There is normal amount of erythema around the puncture site. Otherwise no no excess erythema no edema on palpation. There are a few on her back thigh into her buttock region Back: No kyphosis or scoliosis no CVA tenderness Psych: Mood and affect are slightly off but review of chart reveals history of bipolar. Skin: Lesions as described above. Otherwise warm and dry to touch Data 03/03/23 16:50 03/03/23 16:50 CXR: My impression: Hyperinflated lungs consistent with emphysema. No acute disease. Radiologist's impression: No acute disease A&P Assessment and plan (1) Sting, hornet: Patient received Solu-Medrol 125 mg in the ED. We will follow with prednisone 40 mg daily day x4. H1 and H2 clayton with Benadryl and Pepcid ordered. (2) Allergic reaction to wasp sting: As above (3) Anxiety: Continue home medication (4) Dyslipidemia: Continue home medication (5) Nicotine dependence: Patient has no interest in smoking cessation at this time. I did explain to her she will carry the diagnosis of COPD after chest x-ray and physical exam today. (6) Hypertension: Markedly elevated blood pressure in the emergency room. Patient's explains that she is on metoprolol and then added lisinopril however the addition of lisinopril caused her blood pressure to lower and she is not taking this anymore? With blood pressures over 200 systolic and over 100 diastolic will resume both metoprolol and lisinopril. (7) Emphysema of lung: Currently requiring oxygen we will do a home O2 eval tomorrow. Plan Patient wishes to be full code at this time. Advised both her and her to seek legal guidance for DPOA and living will and wishes. Attestations Medical Necessity Statement*: Patient is in observation status for treatment and evaluation post hornet stings. Coding Level of Care Code Acute Code for Chg Fwd Diagnoses Sting, hornet T63.451A Allergic reaction to wasp sting T63.461A Anxiety F41.9 Dyslipidemia E78.5 Nicotine dependence F17.200 Hypertension I10 Emphysema of lung J43.9
--- NOTE | 2023-03-03 22:14 | PC.NURSE ---
Dr. Esqueda notified of blood pressure of 196/91.
--- NOTE | 2023-03-03 22:16 | PC.NURSE ---
Patient's oxygen saturation 88 percent on room air and 92 percent when placed on 2 liters nasal cannula.
--- NOTE | 2023-03-03 22:23 | PC.NURSE ---
Report called to Key[facility] JARAMILLO on [place]. All questions and concerns were addressed at time of report and transfer. Pt was transferred with all paperwork and belongings to room 263.
[2023-03-03] MEDS: lisinopril 10 mg Tablet PO (22:24)
[2023-03-03] MEDS: ibuprofen 200 mg Tablet 400 MG PO (22:24)
[2023-03-03] MEDS: metoprolol tartrate 50 mg Tablet PO (22:24)
[2023-03-03] MEDS: famotidine 20 mg/2 mL INJ 40 MG IVP (22:25)
[2023-03-03] MEDS: enoxaparin 40 mg/0.4 mL Syringe SUBCUT (22:25)
[2023-03-03] MEDS: sodium chloride 0.9% 1,000 ML 125 ML IV (22:26)
--- NOTE | 2023-03-03 22:52 | PC.NURSE ---
Dr. Esqueda notified of patient having Ibuprofen ordered. Patient states she is allergic to Ibuprofen and that it causes confusion. Ordered to monitor.
--- NOTE | 2023-03-03 23:28 | PC.NURSE ---
Patient states she does not know her home medications. She states her pharmacy or her could be called to get this information.
[2023-03-03] MEDS: acetaminophen 500 mg Tablet 1000 MG PO (23:52)
[2023-03-04] VITALS (11 sets, daily range): BP systolic 148–171; BP diastolic 55–69; PULSE 72–85; RESP 16–18; TEMP 36.6–37.2; O2SAT 87–97
[2023-03-04 02:07] LABS: Add Urine Microscopic? YES; Bacteria Urine 4+ /hpf; Bilirubin Urine Neg (Negative); Blood Urine 2+ (Negative); Glucose Urine UA Norm (Normal); Ketones Urine Negative (Negative); Leukocyte Esterase Urine Negative (Negative); Nitrate Urine Negative (Negative); Protein Urine Trace (Negative); RBC Urine 0-4 /hpf (0-2); Specific Gravity, Urine 1.005 (1.005-1.030); Squamous Epithelial Cell Urine 0-4 /hpf (0-5); Urine Appearance Cloudy (CLEAR); Urine Color Yellow (Yellow); Urobilinogen Urine Neg (Negative); pH Urine 6 (5-7)
[2023-03-04 02:08] LABS: Add Urine Culture? Yes
[2023-03-04] MEDS: diphenhydrAMINE 50 mg/mL SDV 1mL 25 MG IVP ×3 (03:08→14:55)
[2023-03-04] MEDS: ibuprofen 200 mg Tablet 400 MG PO ×4 (03:16→21:30)
[2023-03-04] MEDS: sodium chloride 0.9% 1,000 ML 125 ML IV (06:47)
[2023-03-04] MEDS: acetaminophen 500 mg Tablet 1000 MG PO (06:47)
[2023-03-04] MEDS: venlafaxine ER (24HR) 150 mg Capsule PO (06:48)
[2023-03-04] MEDS: magnesium oxide 400 mg tablet 200 MG PO (09:12)
[2023-03-04] MEDS: aspirin 81 mg EC Tablet PO (09:12)
[2023-03-04] MEDS: predniSONE 20 mg Tablet 40 MG PO (09:12)
[2023-03-04] MEDS: lisinopril 20 mg Tablet PO (09:12)
[2023-03-04] MEDS: metoprolol succinate ER (24 HR) 25 mg Tablet PO (09:12)
[2023-03-04] MEDS: famotidine 20 mg/2 mL INJ IVP ×2 (09:13→21:26)
--- NOTE | 2023-03-04 21:05 | P.PN_ITS ---
Subjective Subjective: This morning she states she is doing all right. Sting sites are improving, still areas of erythema around the sting sites. Denies trouble breathing or any facial or airway swelling. Later on reported to have some confusion by nursing staff and her . Vitals/I&O/Wt Last Vital Signs Temp 98.6 F 03/04/23 19:01 Pulse 76 03/04/23 19:01 Resp 18 03/04/23 19:01 BP 164/55 03/04/23 19:01 Pulse Ox 97 03/04/23 19:01 O2 Del Method Nasal Cannula 03/04/23 09:19 O2 Flow Rate 2 03/04/23 13:55 03/04/23 03/04/23 03/04/23 06:59 14:59 22:59 Intake Total 1000 / 2102 680.833 / 680.833 120 / 800.833 Balance 1000 / 2102 680.833 / 680.833 120 / 800.833 Weight last 48 hrs Weight 56.699 kg Physical Exam Const: COMMON NORMALS: patient oriented x3 and alert GENERAL APPEARANCE: cooperative ORIENTATION/CONSCIOUSNESS: Yes awake HENMT: COMMON NORMALS: oropharynx normal OTHER: A few facial scrapes which appear to be healing. No signs of infection. Neck/C-Spine: COMMON NORMALS: no JVD Resp: COMMON NORMALS: normal respiratory effort and clear to auscultation bilaterally AUSCULTATION: clear to auscultation bilaterally Cardio: COMMON NORMALS: no JVD, regular rhythm, S1 normal heart sound present, S2 normal heart sound present and No murmurs present (Cardio) RHYTHM: regular rhythm HEART SOUNDS: S1 normal heart sound present and S2 normal heart sound present GI: COMMON NORMALS: Normal to inspection, nondistended, normoactive bowel sounds present, Soft to palpation and non-tender PALPATION: Yes Soft to palpation Extremity: COMMON NORMALS: no joint enlargement and no pedal edema Neuro: COMMON NORMALS: patient oriented x3 and moves all extremities SENSORIUM/ORIENTATION: Yes alert Skin: COMMON NORMALS: no rashes or lesions noted GENERAL SKIN EXAM: no rashes or lesions noted OTHER: Multiple sting areas with surrounding erythema about 3-7 cm around on her legs. Data 03/03/23 16:50 03/03/23 16:50 A&P Assessment and plan (1) Acute encephalopathy: Sting areas after hornets have been improving, but this afternoon she is reported having some confusion by nursing staff and her which is new. She is noted on scheduled Benadryl, prednisone, as her symptoms otherwise are improving we will stop these medications as they may be contributing to her acute encephalopathy, possibly toxic secondary to the medications. Due to mental status change discharge for now deferred. Reviewed also UA, not entirely suggestive of UTI, she denies urinary symptoms, but urine culture has been sent, pending. Please follow-up, in case suggestive of UTI start treatment. Reassess mental status. She states fell off a truck when trying to run away from the hornets, states she fell on her right side, denies hitting her head, however, as she states was running away quite frantically, and with mental status change, will assess CT head. Otherwise right hip no pain on active or PROM. Possibly rib contusion. Discussed deferred discharge with case management. (2) Sting, hornet: Improving, with AMS as above, stop scheduled steroid, Benadryl. (3) Allergic reaction to wasp sting: As above (4) Anxiety: Continue home medication (5) Dyslipidemia: Continue home medication (6) Nicotine dependence: Continue to encourage cessation. (7) Hypertension: Markedly elevated blood pressure in the emergency room. Patient's expla ins that she is on metoprolol and then added lisinopril however the addition of lisinopril caused her blood pressure to lower and she is not taking this anymore? With blood pressures over 200 systolic and over 100 diastolic will resume both metoprolol and lisinopril. (8) Emphysema of lung: Please have her follow-up with PFT. Follow-up with PCP. Consider addition of inhaler at discharge. Home O2 eval obtained. Attestations Medical Necessity Statement*: Continue hospitalization for assessment management of acute encephalopathy following treatment of hornet stings. Diagnoses Acute encephalopathy G93.40 Sting, hornet T63.451A Allergic reaction to wasp sting T63.461A Anxiety F41.9 Dyslipidemia E78.5 Nicotine dependence F17.200 Hypertension I10 Emphysema of lung J43.9
--- NOTE | 2023-03-04 21:11 | CTR_ITS ---
PROCEDURE INFORMATION: Exam: CT Head Without Contrast Exam date and time: 03/04/2023 11:52 PM Age: 67 years old Clinical indication: Injury or trauma; Blunt trauma (contusions or hematomas); Altered mental status/memory loss; Confusion or disorientation; Patient HX: Confusion with recent fall. ; Additional info: AMS, fall pre-admit TECHNIQUE: Imaging protocol: Computed tomography of the head without contrast. Radiation optimization: All CT scans at this facility use at least one of these dose optimization techniques: automated exposure control; mA and/or kV adjustment per patient size (includes targeted exams where dose is matched to clinical indication); or iterative reconstruction. REPORTING DATA: Count of CT and Cardiac NM exams in prior 12 months: This patient has received 0 known CTs and 0 known cardiac nuclear medicine studies in the 12 months prior to the current study. COMPARISON: No relevant prior studies available. RADIATION DOSE METRICS: Total DLP (mGy-cm): 935.91 FINDINGS: Brain: Mild diffuse white matter disease likely reflecting chronic microvascular ischemic changes. Cerebral ventricles: No ventriculomegaly. Paranasal sinuses: Visualized sinuses are unremarkable. No fluid levels. Mastoid air cells: Visualized mastoid air cells are well aerated. Bones/joints: Unremarkable. No acute fracture. Soft tissues: Unremarkable. CT/CT head wo con* [id number] IMPRESSION: 1. Negative for intracranial hemorrhage or mass effect. 2. Mild diffuse white matter disease likely reflecting chronic microvascular ischemic changes.
[2023-03-04] MEDS: atorvastatin 40 mg Tablet PO (21:30)
[2023-03-04] MEDS: enoxaparin 40 mg/0.4 mL Syringe SUBCUT (21:30)
[2023-03-05 03:49] VITALS: BP 164/52; PULSE 105; RESP 19; TEMP 36.9; O2SAT 91
[2023-03-05 05:37] LABS: Basophils % 0.1 %; Hematocrit 33.6 % (36-47); Lymphocytes # 1.9 10^3/uL (0.8-4.8); Mean Corpuscular HGB Conc 32.4 g/dL (30-55); Mean Corpuscular Hemoglobin 29.7 pg (27-33); Mean Corpuscular Volume 91.6 fl (85-98); Mean Platelet Volume 11.2 fL (7.4-10.4); Monocytes # 1.3 10^3/uL (0.2-0.9); Monocytes % 11.6 %; Neutrophils # 8.05 10^3/uL (1.8-7.7); Nucleated Red Blood Cells % 0 %; Platelet Count 288 10^3/cmm (157-399); Red Blood Count 3.67 10^6/uL (3.85-5.65); Red Cell Distribution Width 14.4 % (12.1-15.1); White Blood Count 11.33 10^3/uL (3.29-11.43)
[2023-03-05 05:54] LABS: Alanine Aminotransferase 21 U/L (0-33); Albumin Level 3.8 g/dL (3.5-5.2); Alkaline Phosphatase 66 U/L (35-105); Anion Gap 15.1 (5-19); Aspartate Amino Transferase 38 U/L (0-32); Blood Urea Nitrogen 22 mg/dL (8-23); Calcium 9.2 mg/dL (8.5-10.5); Carbon Dioxide 23 mmol/L (22-29); Chloride 104 mmol/L (98-107); Globulin 2.9 g/dL (1.3-4.6); Glomerular Filtration Rate 49.8 mL/min (90-130); Glucose 94 mg/dL (65-115); Osmolality Calculated 289 mOsm/kg (285-295); Potassium 4.1 mmol/L (3.5-5.1); Sodium 138 mmol/L (136-145); Total Bilirubin 0.2 mg/dL (0.15-1.2); Total Protein 6.7 g/dL (6.6-8.7)
[2023-03-05] MEDS: venlafaxine ER (24HR) 150 mg Capsule PO (05:59)
[2023-03-05 07:38] VITALS: BP 169/53; PULSE 74; RESP 16; TEMP 36.4; O2SAT 95
[2023-03-05] MEDS: metoprolol succinate ER (24 HR) 25 mg Tablet PO (08:03)
[2023-03-05] MEDS: acetaminophen 500 mg Tablet 1000 MG PO (08:03)
[2023-03-05] MEDS: TRAMadol 50 mg Tablet PO (08:03)
[2023-03-05] MEDS: aspirin 81 mg EC Tablet PO (08:03)
[2023-03-05] MEDS: magnesium oxide 400 mg tablet 200 MG PO (08:03)
[2023-03-05] MEDS: lisinopril 20 mg Tablet PO (08:04)
[2023-03-05] MEDS: famotidine 20 mg/2 mL INJ IVP (08:04)
[2023-03-05 08:26] VITALS: PULSE 79; RESP 18; O2SAT 96
--- NOTE | 2023-03-05 11:06 | PM.DCS ---
Discharge Providers Date of Admission: 03/03/23 21:10 Date of Discharge: March 05, 2023 Attending Provider at Admission: Gen Esqueda DO Attending Provider at Discharge: Rito Ovalle Primary Care Provider: John Hall MD Diagnoses at Discharge Discharge Diagnosis (1) Acute encephalopathy: Status: Acute (2) Sting, hornet: Status: Acute (3) Allergic reaction to wasp sting: Status: Acute (4) Anxiety: Status: Chronic (5) Dyslipidemia: Status: Acute (6) Nicotine dependence: Status: Acute Permanent problem details: She rolls her own cigarettes and usually smokes at least 6/day, as noted on her last visit note. Today she does not quantify the amount. She is not interested in smoking cessation at this time. (7) Hypertension: Status: Acute (8) Emphysema of lung: Status: Acute Reason for Visit Reason for Visit: hornets stings mulitple, weakness, Hospital Course Hospital Course 67-year female who was admitted for management and evaluation of multiple wasp stings. Patient suffered from multiple wasp stings, she was given Benadryl and steroids which aggravated her confusion with discontinuation of Benadryl her symptoms improved significantly, she did not show any signs of anaphylaxis, no facial swelling or signs of airway swelling, UA unremarkable for significant UTI was concerned that she is suffering from memory issues as well. Patient remained hemodynamically stable she will be discharged home She has follow-up appointment with her PCP I have discontinued naproxen from her discharge medications She can use calamine lotion for pruritic skin lesions, discontinued steroid Physical Exam Narrative: Awake and alert Pleasant cooperative Euvolemic GCS 15 S1, S2 Discharge Data Studies Completed and Pending Completed Studies During Hospitalization Category Date Time Status CT head wo con* [id number] Routine Cat Scan 03/04/23 21:11 Completed CXRP [XR chest 1V portable [id number]] Stat Exams 03/03/23 18:25 Completed Pending at discharge Category Date Time Status Complete Blood Count w/Auto AM LABS Lab 03/06/23 04:00 Ordered Complete Blood Count w/Auto AM LABS Lab 03/07/23 04:00 Ordered Comprehensive Metabolic Panel AM LABS Lab 03/06/23 04:00 Ordered Comprehensive Metabolic Panel AM LABS Lab 03/07/23 04:00 Ordered Urine Culture Stat Lab 03/04/23 01:00 Results Radiology Impressions Chest X-Ray 03/03/23 18:25 IMPRESSION: No acute findings. Head CT 03/04/23 21:11 IMPRESSION: 1. Negative for intracranial hemorrhage or mass effect. 2. Mild diffuse white matter disease likely reflecting chronic microvascular ischemic changes. Laboratory Results WBC 11.33 10^3/uL (3.29-11.43) 03/05/23 04:52 RBC 3.67 10^6/uL (3.85-5.65) L 03/05/23 04:52 Hgb 10.90 g/dL (11.27-16.99) L 03/05/23 04:52 Hct 33.6 % (36-47) L 03/05/23 04:52 MCV 91.6 fl (85-98) 03/05/23 04:52 MCH 29.7 pg (27-33) 03/05/23 04:52 MCHC 32.4 g/dL (30-55) 03/05/23 04:52 RDW 14.4 % (12.1-15.1) 03/05/23 04:52 Plt Count 288 10^3/cmm (157-399) 03/05/23 04:52 MPV 11.2 fL (7.4-10.4) H 03/05/23 04:52 Neut % (Auto) 71.0 % 03/05/23 04:52 Lymph % (Auto) 17.0 % 03/05/23 04:52 [place] % (Auto) 11.6 % 03/05/23 04:52 Eos % (Auto) 0.0 % 03/05/23 04:52 Baso % (Auto) 0.1 % 03/05/23 04:52 Neut # (Auto) 8.05 10^3/uL (1.8-7.7) H 03/05/23 04:52 Lymph # (Auto) 1.9 10^3/uL (0.8-4.8) 03/05/23 04:52 [place] # (Auto) 1.3 10^3/uL (0.2-0.9) H 03/05/23 04:52 Eos # (Auto) 0.0 10^3/uL (0.0-0.8) 03/05/23 04:52 Baso # (Auto) 0.0 10^3/uL (0.0-0.1) 03/05/23 04:52 Nucleated RBC % (auto) 0 % 03/05/23 04:52 Nucleated RBCs # 0.0 /100WBC 03/05/23 04:52 Sodium 138 mmol/L (136-145) 03/05/23 04:52 Potassium 4.1 mmol/L (3.5-5.1) 03/05/23 04:52 Chloride 104 mmol/L (98-107) 03/05/23 04:52 Carbon Dioxide 23 mmol/L (22-29) 03/05/23 04:52 Anion Gap 15.1 (5-19) 03/05/23 04:52 BUN 22 mg/dL (8-23) 03/05/23 04:52 Creatinine 1.1 mg/dL (0.5-0.9) H 03/05/23 04:52 GFR Calculation 49.8 mL/min (90-130) L 03/05/23 04:52 Glucose 94 mg/dL (65-115) 03/05/23 04:52 Calculated Osmolality 289 mOsm/kg (285-295) 03/05/23 04:52 Calcium 9.2 mg/dL (8.5-10.5) 03/05/23 04:52 Total Bilirubin 0.2 mg/dL (0.15-1.2) 03/05/23 04:52 AST 38 U/L (0-32) H 03/05/23 04:52 ALT 21 U/L (0-33) 03/05/23 04:52 Alkaline Phosphatase 66 U/L (35-105) 03/05/23 04:52 C-Reactive Protein 3.0 mg/L (0.0-4.9) 03/03/23 16:50 Total Protein 6.7 g/dL (6.6-8.7) 03/05/23 04:52 Albumin 3.8 g/dL (3.5-5.2) 03/05/23 04:52 Globulin 2.9 g/dL (1.3-4.6) 03/05/23 04:52 Urine Color Yellow (Yellow) 03/04/23 01:00 Urine Appearance Cloudy (CLEAR) A 03/04/23 01:00 Urine pH 6 (5-7) 03/04/23 01:00 Ur Specific [place] 1.005 (1.005-1.030) 03/04/23 01:00 Urine Protein Trace (Negative) 03/04/23 01:00 Urine Glucose (UA) Norm (Normal) 03/04/23 01:00 Urine Ketones Negative (Negative) 03/04/23 01:00 Urine Blood 2+ (Negative) H 03/04/23 01:00 Urine Nitrate Negative (Negative) 03/04/23 01:00 Urine Bilirubin Neg (Negative) 03/04/23 01:00 Urine Urobilinogen Neg mg/dL (Negative) 03/04/23 01:00 Ur Leukocyte Esterase Negative (Negative) 03/04/23 01:00 Urine RBC 0-4 /hpf (0-2) H 03/04/23 01:00 Urine WBC 5-10 /hpf (0-5) H 03/04/23 01:00 Ur Squamous Epith Cells 0-4 /hpf (0-5) H 03/04/23 01:00 Amorphous Sediment Not Reportable 03/04/23 01:00 Urine Bacteria 4+ /hpf (NONE) H 03/04/23 01:00 Vitals Last Vital Signs Temp 97.5 F L 03/05/23 07:38 Pulse 79 03/05/23 08:26 Resp 18 03/05/23 08:26 BP 169/53 03/05/23 07:38 Pulse Ox 96 03/05/23 08:26 O2 Del Method Nasal Cannula 03/05/23 08:26 O2 Flow Rate 2 03/05/23 08:26 Discharge Plan Discharge Patient Disposition: Home Condition: Stable Prescriptions: Continued aspirin 81 mg tablet,delayed release (DR/EC) 81 mg PO DAILY vitamin B complex [B Complex-Vitamin B12] Tablet 1 tab PO EVERY OTHER DAY cholecalciferol (vitamin D3) 25 mcg (1,000 unit) capsule 25 mcg PO EVERY OTHER DAY magnesium 200 mg tablet 200 mg PO DAILY acetaminophen 650 mg tablet extended release 650 mg PO Q8H PRN (Reason: pain) Qty: 90 3RF fluticasone propionate 50 mcg/actuation spray,suspension See Rx Instructions .ROUTE .COMPLEX Qty: 16 5RF Dose Instruction: SHAKE LIQUID AND USE 1 SPRAY IN EACH NOSTRIL TWICE DAILY NEEDED FOR NASAL CONGESTION Rx Instructions: SHAKE LIQUID AND USE 1 SPRAY IN EACH NOSTRIL TWICE DAILY NEEDED FOR NASAL CONGESTION lisinopril 20 mg tablet 20 mg PO DAILY 90 Days Qty: 90 2RF oxybutynin chloride 15 mg tablet extended release 24hr 15 mg PO DAILY Qty: 90 1RF Rx Instructions: She can take 1-1/2 tablets daily of the 10 mg tablets until she runs out. meclizine 25 mg tablet 25 mg PO TID PRN (Reason: stress/anxiety) Qty: 90 1RF simvastatin 40 mg tablet See Rx Instructions .ROUTE .COMPLEX Qty: 90 2RF Dose Instruction: TAKE 1 TABLET BY MOUTH DAILY Rx Instructions: TAKE 1 TABLET BY MOUTH DAILY omeprazole 20 mg capsule,delayed release(DR/EC) 20 mg PO DAILY PRN (Reason: acid reflux) Qty: 90 3RF venlafaxine 150 mg capsule,extended release 24hr 150 mg PO QAM Qty: 30 2RF Rx Instructions: Take one capsule by mouth every morning; stop the tablet form of this medication Daily Multiple Tablet 1 tab PO DAILY potassium gluconate 595 mg (99 mg) Tablet 595 mg PO DAILY [place] 3 Fish Oil 684-1,200 mg Capsule,Delayed Release(Dr/Ec) 1 cap PO DAILY calcium carb-mag ox-zinc gluc 333-133-5 mg Tablet 1 tab PO DAILY Discontinued tramadol 50 mg tablet 50 mg PO BID PRN (Reason: pain) 30 Days Qty: 60 3RF Rx Instructions: refill on or after each 30 day interval naproxen 250 mg Tablet 250 mg PO BID PRN (Reason: Pain) Discharge Orders: Discharge Order (Routine); Ordered 03/05/23 Ordered By: Joe Crowe Other Ambulatory Orders: DME: Oxygen (Order) Location: None Selected Ordered By: Rito Ovalle Referrals: John Hall MD [Primary Care Provider] - 03/08/23 2:15 pm Discharge Diet: Cardiac Discharge Activity: Increase activity as tolerated Patient Instructions: Opioid Safety Discharge Attestations Time Spent in Discharge Care*: less than 30 min Quality Metrics Clinical Quality Measures [ No reported AMI, CVA or VTE this stay] Coding Level of Care Code Acute Code for Chg Fwd Diagnoses Acute encephalopathy G93.40 Sting, hornet T63.451A Allergic reaction to wasp sting T63.461A Anxiety F41.9 Dyslipidemia E78.5 Nicotine dependence F17.200 Hypertension I10 Emphysema of lung J43.9
[2023-03-05 11:43] VITALS: BP 169/53; PULSE 79; RESP 18; TEMP 36.4; O2SAT 96
== END 2023-03-05 11:46 | disposition home or self-care (01) ==
LOC: ER 20:39 → MEDSURG 21:10
PROVIDERS: Admitting Provider Internal Medicine; Emergency Provider Emergency Medicine; PCP Family Medicine Adult Medicine; Visit Provider Internal Medicine
DX: G93.40 Encephalopathy, unspecified (principal); T63.451A Toxic effect of venom of hornets, accidental (unintentional), initial encounter; T63.461A Toxic effect of venom of wasps, accidental (unintentional), initial encounter; Y99.9 Unspecified external cause status; F41.9 Anxiety disorder, unspecified; E78.5 Hyperlipidemia, unspecified; I10 Essential (primary) hypertension; F43.9 Reaction to severe stress, unspecified; Z91.81 History of falling; F32.A Depression, unspecified; K21.9 Gastro-esophageal reflux disease without esophagitis; R32 Unspecified urinary incontinence; Z79.82 Long term (current) use of aspirin; E03.9 Hypothyroidism, unspecified; J44.9 Chronic obstructive pulmonary disease, unspecified; F17.210 Nicotine dependence, cigarettes, uncomplicated; Z98.1 Arthrodesis status
CPT/HCPCS: 36415; 70450; 71045; 80053; 81001; 85025; 86140; 87077; 87086; 87186; 94664; 94760; 96361; 96372; 96374; 96375; 96376; 99285; G0378; J0131; J1200; J1650; J1885; J2405; J2930; J3010; J3490; J7030; J7512; Q3014

== ENCOUNTER → 2023-10-25 10:02 | Outpatient (BNVA) | payer MEDICARE, OTHER, SELFPAY | PROVIDERS: PCP Family Medicine Adult Medicine; Visit Provider Family Medicine Adult Medicine | DX: I10 Essential (primary) hypertension (principal); E78.2 Mixed hyperlipidemia; F33.41 Major depressive disorder, recurrent, in partial remission; E03.9 Hypothyroidism, unspecified; G89.29 Other chronic pain; Z98.1 Arthrodesis status | CPT/HCPCS: 80053; 80061; 84443; 85025 ==

== ENCOUNTER → 2024-04-10 14:03 | Outpatient (BNVA) | payer MEDICARE, MEDICAID, SELFPAY | PROVIDERS: PCP Family Medicine Adult Medicine; Visit Provider Orthopaedic Surgery | DX: M54.9 Dorsalgia, unspecified (principal); M54.41 Lumbago with sciatica, right side; M54.42 Lumbago with sciatica, left side | CPT/HCPCS: 72110; 99204 ==

== ENCOUNTER 2024-04-30 11:52 | Outpatient (CLI) | payer MEDICARE, MEDICAID, SELFPAY ==
--- NOTE | 2024-04-30 12:15 | MR_ITS ---
WS: [id number] MRI LUMBAR SPINE NONCONTRAST TECHNIQUE: Sagittal T1, T2 and STIR imaging. Axial T1 and T2 imaging. CLINICAL INFORMATION: lumbar pain COMPARISON: MRI 2020 FINDINGS: Mild lumbar curve. No acute compression. Pedicle screw fixation L4-5 with laminectomy defects. Disc b ulging with severe central canal stenosis L3-4. Endplate Schmorl's nodes in the lower thoracic spine T11 and T12.. L1-L2: Mild annular bulging. Mild facet arthropathy. Spinal canal and foramen are patent. L2-L3: Mild annular bulging. Mild facet arthropathy. Spinal canal and foramen are patent. L3-L4: Broad-based central protrusion with severe central canal stenosis. Moderate facet arthropathy with ligamentum flavum hypertrophy. Mild to moderate LEFT bony foraminal narrowing. L4-L5: Slight anterolisthesis L4 on L5 with disc desiccation. Laminectomy defects. Pedicle screw fixa tion. Spinal canal and foramen are patent. L5-S1: Disc desiccation. Mild disc bulge with osteophytic ridging. Moderate facet arthropathy. Mild R IGHT and no significant LEFT foraminal narrowing. Visualized pelvic bony structures: Normal. Paravertebral soft tissues: Normal. MR/MR lumbar spine wo con* [id number] IMPRESSION: 1. Disc bulging L3-4 with a broad-based prominent central protrusion. Severe c entral canal stenosis. Recommend spine surgery consultation. 2. Pedicle screw fixation L4-5 with laminectomy defects. Spinal canal is paten t at the fusion levels. 3. Mild to moderate LEFT L3-4 foraminal narrowing. 4. Mild RIGHT L5-S1 bony foraminal narrowing.
== END 2024-04-30 11:53 | disposition home or self-care (01) ==
LOC: RAD 11:53
PROVIDERS: PCP Family Medicine Adult Medicine; Visit Provider Orthopaedic Surgery
DX: M51.26 Other intervertebral disc displacement, lumbar region (principal); M47.896 Other spondylosis, lumbar region; M51.360 Other intervertebral disc degeneration, lumbar region with discogenic back pain only; M47.898 Other spondylosis, sacral and sacrococcygeal region; G89.4 Chronic pain syndrome
CPT/HCPCS: 72148

== ENCOUNTER → 2024-05-13 13:24 | Outpatient (BNVA) | payer MEDICARE, MEDICAID, SELFPAY | PROVIDERS: PCP Family Medicine Adult Medicine; Visit Provider Orthopaedic Surgery | DX: Z09 Encounter for follow-up examination after completed treatment for conditions other than malignant neoplasm (principal); M54.9 Dorsalgia, unspecified; M48.062 Spinal stenosis, lumbar region with neurogenic claudication | CPT/HCPCS: 36415; 80053; 85025; 99214 ==

== ENCOUNTER 2024-05-22 13:22 | Outpatient (CLI) | payer MEDICARE, OTHER, SELFPAY ==
[2024-05-22 14:16] LABS: Bilirubin Urine Negative (Negative); Blood Urine Negative (Negative); Glucose Urine UA Negative (Normal); Ketones Urine Negative (Negative); Leukocyte Esterase Urine 1+ (Negative); Nitrate Urine Positive (Negative); Protein Urine Negative (Negative); Specific Gravity, Urine 1.008 (1.005-1.030); Urine Appearance Clear (CLEAR); Urine Color Yellow (Yellow); Urobilinogen Urine 0.2 mg/dL (Negative)
[2024-05-22 14:21] LABS: Add Urine Microscopic? YES; Bacteria Urine 4+ /hpf; Hyaline Casts Urine 0-4 /lpf; RBC Urine 0-2 /hpf (0-2); WBC Urine 21-50 /hpf (0-5)
[2024-05-22 14:36] LABS: Add Urine Culture? Yes
== END 2024-05-22 13:23 | disposition home or self-care (01) ==
LOC: LAB 13:24
PROVIDERS: PCP Family Medicine Adult Medicine; Visit Provider Orthopaedic Surgery
DX: M54.9 Dorsalgia, unspecified (principal)
CPT/HCPCS: 81001

== ENCOUNTER → 2024-07-17 15:28 | Outpatient (BNVA) | payer MEDICARE, MEDICAID, SELFPAY | PROVIDERS: PCP Family Medicine; Visit Provider Family Medicine | DX: I10 Essential (primary) hypertension (principal); E78.2 Mixed hyperlipidemia; E87.1 Hypo-osmolality and hyponatremia; F17.210 Nicotine dependence, cigarettes, uncomplicated; E03.9 Hypothyroidism, unspecified; K21.9 Gastro-esophageal reflux disease without esophagitis; N18.31 Chronic kidney disease, stage 3a; N39.46 Mixed incontinence | CPT/HCPCS: 80048; 83930; 83935; 84439; 84443 ==

== ENCOUNTER 2024-09-18 12:07 | Outpatient (CLI) | payer MEDICARE, MEDICAID, SELFPAY ==
[2024-09-18 13:18] LABS: Basophils % 0.6 %; Eosinophils # 0.1 10^3/uL (0.0-0.8); Hematocrit 34.2 % (36-47); Lymphocytes # 1.4 10^3/uL (0.8-4.8); Lymphocytes % 25.5 %; Mean Corpuscular HGB Conc 32.2 g/dL (30-55); Mean Corpuscular Hemoglobin 27.4 pg (27-33); Mean Corpuscular Volume 85.3 fl (85-98); Mean Platelet Volume 10.2 fL (7.4-10.4); Monocytes # 0.8 10^3/uL (0.2-0.9); Monocytes % 14.6 %; Neutrophils # 3.08 10^3/uL (1.8-7.7); Neutrophils % 56.9 %; Nucleated Red Blood Cells % 0 %; Platelet Count 347 10^3/cmm (157-399); Red Blood Count 4.01 10^6/uL (3.85-5.65); Red Cell Distribution Width 15.8 % (12.1-15.1); White Blood Count 5.41 10^3/uL (3.29-11.43)
[2024-09-18 13:19] LABS: Bilirubin Urine Negative (Negative); Blood Urine Negative (Negative); Glucose Urine UA Negative (Normal); Ketones Urine Negative (Negative); Leukocyte Esterase Urine 1+ (Negative); Nitrate Urine Positive (Negative); Protein Urine Negative (Negative); Specific Gravity, Urine 1.008 (1.005-1.030); Urine Appearance Cloudy (CLEAR); Urine Color Yellow (Yellow); Urobilinogen Urine 0.2 mg/dL (Negative)
[2024-09-18 13:25] LABS: Add Urine Microscopic? YES; Bacteria Urine 4+ /hpf; Hyaline Casts Urine 0.81 /lpf; RBC Urine 0-2 /hpf (0-2); WBC Urine 21-50 /hpf (0-5)
[2024-09-18 13:33] LABS: Add Urine Culture? Yes
[2024-09-18 13:35] LABS: Estmated Average Glucose 123; Hemoglobin A1C 5.9 % (4.0-6.0)
[2024-09-18 14:11] LABS: Alanine Aminotransferase 12 U/L (0-33); Albumin Level 4.1 g/dL (3.5-5.2); Alkaline Phosphatase 74 U/L (35-105); Anion Gap 15.5 (5-19); Aspartate Amino Transferase 20 U/L (0-32); Blood Urea Nitrogen 16 mg/dL (8-23); Calcium 9.2 mg/dL (8.5-10.5); Carbon Dioxide 25 mmol/L (22-29); Chloride 102 mmol/L (98-107); Globulin 2.9 g/dL (1.3-4.6); Glomerular Filtration Rate 62.6 mL/min (90-130); Glucose 95 mg/dL (65-115); Osmolality Calculated 287 mOsm/kg (285-295); Potassium 4.5 mmol/L (3.5-5.1); Sodium 138 mmol/L (136-145); Total Bilirubin 0.2 mg/dL (0.15-1.2)
== END 2024-09-18 12:08 | disposition home or self-care (01) ==
LOC: LAB 12:13
PROVIDERS: PCP Family Medicine; Visit Provider Orthopaedic Surgery
DX: Z01.818 Encounter for other preprocedural examination (principal)
CPT/HCPCS: 36415; 80053; 81001; 83036; 85025; 87086

== ENCOUNTER 2024-09-22 13:24 | Inpatient (IN) | payer MEDICARE, MEDICAID, SELFPAY ==
[2024-09-22] VITALS (22 sets, daily range): BP systolic 131–192; BP diastolic 42–76; PULSE 60–86; RESP 12–20; TEMP 36.1–36.9; O2SAT 90–100; BMI 22.8
[2024-09-22 06:16] LABS: Bilirubin Urine Negative (Negative); Blood Urine Negative (Negative); Glucose Urine UA Negative (Normal); Ketones Urine Trace (Negative); Leukocyte Esterase Urine Negative (Negative); Nitrate Urine Negative (Negative); Protein Urine Negative (Negative); Specific Gravity, Urine 1.009 (1.005-1.030); Urine Appearance Clear (CLEAR); Urine Color Yellow (Yellow); Urobilinogen Urine 0.2 mg/dL (Negative)
[2024-09-22 06:21] LABS: Add Urine Microscopic? YES; Bacteria Urine None Seen /hpf; Hyaline Casts Urine 4.52 /lpf; RBC Urine 0-2 /hpf (0-2); Squamous Epithelial Cell Urine 0-5 /hpf (0-5); WBC Urine 0-5 /hpf (0-5)
[2024-09-22] MEDS: sodium chloride 0.9% 1,000 ML 30 ML IV (07:15)
--- NOTE | 2024-09-22 08:18 | ANES.PREANE2 ---
Pre-Anesthetic Assessment Height/Weight: Height 5 ft Weight 117 lb Temp Pulse Resp BP Pulse Ox O2 Del Method 98.3 F 82 17 132/55 91 Room Air 09/22/24 07:05 09/22/24 07:05 09/22/24 07:05 09/22/24 07:05 09/22/24 07:05 09/22/24 07:05 Preop Diagnosis: Lumbar stenosis with neurogenic claudication Operation Date: 09/22/24 08:50 Proposed Procedures p Spinal Fusion PSF(Not Applicable) - Mingo Wetzel DO s Lumbopelvic Fixation(Not Applicable) - Mingo Wetzel DO s Sacroiliac Joint Fusion SI Joint Fusion(Bilateral) - Mingo Wetzel DO s Lumbar Spine Decompression(Not Applicable) - Mingo Wetzel DO Was Beta Yessy taken within 24 hours: Yes Was Clonidine taken within 24 hours: N/A Last intake: Intake Last Liquid Date 09/21/24 Last Liquid Time 22:00 Last Solid Date 09/21/24 Last Solid Time 18:30 Social Tobacco and No alcohol Exam alert, oriented x 3, clear to auscultation bilaterally and regular rate & rhythm Airway Submandibular: within normal limits Cervical ROM: within normal limits Mallampati: Class I Comments: Comments: Edentulous Anesthetic Plan ASA status: 3 Anesthesia: General Other: No prior issues with anesthesia NPO since yesterday evening History of hypertension on lisinopril and metoprolol Smoker, COPD CKD stage III GERD, controlled with omeprazole Hypothyroidism on Synthroid Labs reviewed and acceptable for procedure Type and screen performed Plan for GETA with arterial line Risk of > 500 ml blood loss (7ml/kg in children): Yes, adequate IV access and fluids planned Medications/Allergies Home Medications ?Medication ?Instructions ?Recorded ?Confirmed ?Last Taken ?Type aspirin 81 mg tablet,delayed 81 mg PO DAILY 07/21/19 09/22/24 09/16/24 History release acetaminophen 650 mg 650 mg PO Q8H PRN pain #90 tabs 04/18/22 09/22/24 09/17/24 Rx tablet,extended release multivitamin 1 tab PO DAILY 03/04/23 09/22/24 Unknown History lisinopril 20 mg tablet 20 mg PO DAILY hypertension 90 06/26/24 09/22/24 09/21/24 Rx days #90 tabs meclizine 25 mg tablet 25 mg PO TID #90 tabs 06/26/24 09/22/24 09/21/24 Rx metoprolol succinate 25 mg 12.5 mg (1/2 x 25 mg) PO DAILY #90 06/26/24 09/22/24 09/22/24 Rx tablet,extended release 24 hr tabs oxybutynin chloride 15 mg 15 mg PO DAILY urinary 06/26/24 09/22/24 09/21/24 Rx tablet,extended release 24 hr incontinence #90 tabs simvastatin 40 mg tablet 40 mg PO DAILY #90 tabs 06/26/24 09/22/24 09/21/24 Rx venlafaxine 150 mg 150 mg PO QAM #120 caps 06/26/24 09/22/24 09/21/24 Rx capsule,extended release 24 hr tramadol 50 mg tablet 50 mg PO Q8H PRN pain 30 days #60 08/28/24 09/22/24 09/21/24 Rx tabs gabapentin 300 mg capsule 300 mg PO DAILY 09/18/24 09/22/24 Unknown History levothyroxine 50 mcg tablet 50 mcg PO DAILY 09/18/24 09/22/24 09/21/24 History omeprazole 20 mg capsule,delayed 20 mg PO DAILY acid reflux 09/18/24 09/22/24 09/22/24 History release sulfamethoxazole 800 1 tab PO BID #20 tabs 09/18/24 Unknown Rx mg-trimethoprim 160 mg tablet (Bactrim DS) Allergies Allergy/AdvReac Type Severity Reaction Status Date / Time aspirin Allergy Nausea Verified 09/22/24 06:58 codeine Allergy Rash and Verified 09/22/24 06:58 Itching fluoxetine (From Prozac) Allergy ADR-Confusi Verified 09/22/24 06:58 on ibuprofen Allergy ADR-Confusi Verified 09/22/24 06:58 on meloxicam (From Mobic) Allergy Unconscious Verified 09/22/24 06:58 ness Sulfa (Sulfonamide Allergy Rash Verified 09/22/24 06:58 Antibiotics) trazodone Allergy Rash Verified 09/22/24 06:58 Current Medications Generic Name Dose Route Start Last Admin Trade Name Freq PRN Reason Stop Dose Admin Sodium Chloride 1,000 mls @ 30 mls/hr 09/22/24 07:00 09/22/24 07:15 Sodium Chloride 0.9% IV 09/23/24 06:59 30 mls/hr .Q24H CATARINA Administration PFSH Anesthesia Medical History (Updated 08/19/24 @ 10:25 by Celia Parks) Chronic bilateral low back pain with bilateral sciatica Encounter for chronic pain management chronic back pain Pain management contract signed tramadol 1. Hyponatremia Screening for lung cancer Nicotine dependence, cigarettes, uncomplicated CKD stage 3a, GFR 45-59 ml/min Hypertension Anxiety sees psych Emphysema of lung Mixed incontinence urge and stress Nonfamilial nocturnal leg cramps Allergic rhinitis due to allergen Intervertebral disc disorder with radiculopathy of lumbosacral region Spondylolisthesis, lumbar region Nicotine dependence She rolls her own cigarettes and usually smokes at least 6/day, as noted on her last visit note. Today she does not quantify the amount. She is not interested in smoking cessation at this time. Major depressive disorder in partial remission sees psych Acquired hypothyroidism COPD (chronic obstructive pulmonary disease) Hyperlipidemia Bipolar disorder sees pscyh GERD (gastroesophageal reflux disease) Surgical History Hx of colonoscopy with polypectomy 1.2.18 5mm sessile polyp removed; f/u [address] Gamez report H/O tubal ligation (~1989) H/O: hysterectomy (~1990) ovaries remaning; no cancer Hx of tonsillectomy (~1962) History of lumbar fusion (10/21/18) 10/21/2018 Dr. Emani Horowitz. L4-L5 laminectomy/pedicle screw-jorge fixation/transverse process fusion. Family History Mother Hypertension Heart disease Cancer Liver and Ovary Father Hypertension Heart disease Stroke Brother Stroke Sister Cancer Breast Family/Other Cancer Paternal 1st cousin, colon cancer Grandmother Cancer Maternal Liver and Ovary Denies family history of Anesthesia complication Bleeding disorder Social History Smoking and tobacco/nicotine status: current every day tobacco/nicotine user cigarettes Packs smoked per day: 0.5 [ Other cigarette details: started age 14; 26 pk yr hx; ] Alcohol intake: never Substance/Drug Use: never Adopted: No Caregiver/support person: No Lives independently: Yes Household members: spouse Marital status: Number of children: 4 Highest education level completed: 10th Grade Current occupational status: disabled 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
--- NOTE | 2024-09-22 08:37 | W.PM.OPSFHP ---
Same Day Surgery H&P Indication for Procedure/HPI DATE OF PROCEDURE: September 22, 2024 CHIEF COMPLAINT/INDICATIONFOR SURGICAL PROCEDURE: Back and left leg pain PREOP DIAGNOSIS: Lumbar stenosis with neurogenic claudication PLANNED PROCEDURE: Operation Date: 09/22/24 08:50 Proposed Procedures p Spinal Fusion PSF(Not Applicable) - Mingo Wetzel, DO s Lumbopelvic Fixation(Not Applicable) - Mingo Wetzel, DO s Sacroiliac Joint Fusion SI Joint Fusion(Bilateral) - Mingo Wetzel, DO s Lumbar Spine Decompression(Not Applicable) - Mingo Wetzel, DO Medications/Allergies* Home Medications ?Medication ?Instructions ?Recorded ?Confirmed ?Type aspirin 81 mg tablet,delayed 81 mg PO DAILY 07/21/19 09/22/24 History release multivitamin 1 tab PO DAILY 03/04/23 09/22/24 History gabapentin 300 mg capsule 300 mg PO DAILY 09/18/24 09/22/24 History levothyroxine 50 mcg tablet 50 mcg PO DAILY 09/18/24 09/22/24 History omeprazole 20 mg capsule,delayed 20 mg PO DAILY acid reflux 09/18/24 09/22/24 History release Allergies/Adverse Reactions Allergy/AdvReac Type Severity Reaction Status Date / Time aspirin Allergy Nausea Verified 09/22/24 06:58 codeine Allergy Rash and Verified 09/22/24 06:58 Itching fluoxetine (From Prozac) Allergy ADR-Confusi Verified 09/22/24 06:58 on ibuprofen Allergy ADR-Confusi Verified 09/22/24 06:58 on meloxicam (From Mobic) Allergy Unconscious Verified 09/22/24 06:58 ness Sulfa (Sulfonamide Allergy Rash Verified 09/22/24 06:58 Antibiotics) trazodone Allergy Rash Verified 09/22/24 06:58 Current Medications: Generic Name Dose Route Start Last Admin Trade Name Freq PRN Reason Stop Dose Admin Sodium Chloride 1,000 mls @ 30 mls/hr 09/22/24 07:00 09/22/24 07:15 Sodium Chloride 0.9% IV 09/23/24 06:59 30 mls/hr .Q24H [facility]AR[facility] Administration Pertinent History/Comorbid Conditions* Medical History (Updated 08/19/24 @ 10:25 by Celia Parks) Chronic bilateral low back pain with bilateral sciatica Encounter for chronic pain management chronic back pain Pain management contract signed tramadol 07.17.24 Hyponatremia Screening for lung cancer Nicotine dependence, cigarettes, uncomplicated CKD stage 3a, GFR 45-59 ml/min Hypertension Anxiety sees psych Emphysema of lung Mixed incontinence urge and stress Nonfamilial nocturnal leg cramps Allergic rhinitis due to allergen Intervertebral disc disorder with radiculopathy of lumbosacral region Spondylolisthesis, lumbar region Nicotine dependence She rolls her own cigarettes and usually smokes at least 6/day, as noted on her last visit note. Today she does not quantify the amount. She is not interested in smoking cessation at this time. Major depressive disorder in partial remission sees psych Acquired hypothyroidism COPD (chronic obstructive pulmonary disease) Hyperlipidemia Bipolar disorder sees pscyh GERD (gastroesophageal reflux disease) Surgical History (Updated 07/17/24 @ 14:23 by Anne Marie Hannah MD) Hx of colonoscopy with polypectomy 1.2.18 5mm sessile polyp removed; f/u [address] Gamez report H/O tubal ligation (~1989) H/O: hysterectomy (~1990) ovaries remaning; no cancer Hx of tonsillectomy (~1962) History of lumbar fusion (10/21/18) 10/21/2018 Dr. Emani Horowitz. L4-L5 laminectomy/pedicle screw-jorge fixation/transverse process fusion. Family History (Updated 06/06/19 @ 14:16 by Tashia Ma RN) Heart disease Mother Father Cancer Mother Liver and Ovary Sister Breast Family/Other Paternal 1st cousin, colon cancer Grandmother Maternal Liver and Ovary Hypertension Mother Father Stroke Father Brother Denies family history of Anesthesia complication Bleeding disorder Social History Smoking and tobacco/nicotine status: current every day tobacco/nicotine user cigarettes Packs smoked per day: 0.5 [ Other cigarette details: started age 14; 26 pk yr hx; ] Alcohol intake: never Substance/Drug Use: never Adopted: No Caregiver/support person: No Lives independently: Yes Household members: spouse Marital status: Number of children: 4 Highest education level completed: 10th Grade Current occupational status: 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
[2024-09-22] MEDS: ceFAZolin 2,000 mg SDV 2000 MG IVP (10:00)
[2024-09-22] MEDS: heparin, porcine 1,000 unit/mL INJ 10 mL 6000 UNIT IRRIGATION (10:15)
[2024-09-22] MEDS: lidocaine-epi 1% PF 1:200,000 30 mL SDV INJECTION (10:18)
[2024-09-22] MEDS: vancomycin 1,000 MG SDV 1000 MG XX (10:18)
--- NOTE | 2024-09-22 12:53 | XR_ITS ---
WS: [id number] Exam: XR lumbar spine 2-3V* [id number] Date/Time of Exam: 09/22/2024 12:53 PM Reason For Exam: or pic, fusion Comparison 04/10/2024. Posterior spinal fusion has been revised and now extends from L3-S1 with pedicle screws and posterior rods. Screws bridge the bilateral SI joints.
--- NOTE | 2024-09-22 13:16 | P.OP_ITS ---
Operative Report Date of procedure: September 22, 2024 Pre-op diagnosis: Lumbar stenosis with neurogenic claudication Post-op diagnosis: same Surgeon: Mingo Wetzel DO Estimated blood loss (mL): 300 Procedure: 1. L3 to pelvis fusion 2. L3-S1 posterior spine instrumentation 3. Lumbopelvic instrumentation 4. Open SI joint fusion on the right 5. Open SI joint fusion on the left 6. Use of computer navigation stereotactic for spine 7. Bone marrow aspirate from right iliac crest 9. L3/4 laminectomy and partial facetectomies 10. L4/5 laminectomy with partial facetectomies 11. L5/S1 laminectomy with partial facetectomies 12. Use of allograft 13. Removal of deep hardware from spine Patient brought to the operative suite after undergoing anesthesia was placed in the prone position. All areas impingement well-padded. Patient is prepped and draped in normal sterile fashion. Skin incisions made using the previous skin incision extending slightly above and below. The thoracolumbar fascia was split and subperiosteal dissection was made out to the transverse process of L3 to L5 bilaterally as well as the sacral ala bilaterally. Sacrum and SI joints were dissected out as well. The L4-5 screws were identified bilaterally. Screw caps were removed as were the rods. Screws were left in. Next attension was was brought to the bone marrow aspirate. This was done by using the Nuvyyo cell bone marrow aspiration kit. The iliac crest was identified and through a separate incision through the fascia and the bone ma rrow aspiration kit was inserted into the right iliac crest. Bone marrow aspirate was taken 20 cc. This was mixed with the allograft. Next attention was brought to placing the fiducial for the C-arm. This is going to be used for the computer navigation. 2 pins were placed into the right iliac crest which were later moved to the end of the case. The fiducial was attached. C-arm was brought in and then spun around the patient. The information from serum was then later used after is loaded the computer for the placement of pedicle screws. Next attention was brought to placing the pedicle screws. This was done at L3 bilaterally and S1 bilaterally. L4 and L5 screws remained in place. The computer navigated awl was inserted into the pedicle. Followed by the pedicle feeler. Followed by placement of the screws using the computer navigation. At all these levels. Next attention was placing the iliac screws. This was done using the computer navigated awl. This is placed through the ala across the SI joint into the iliac crest. Then followed by the pedicle feeler. Followed by computer navigated tap. 80 mm 9.5 millimeter pedicle screws were then placed into the iliac crest. This was done bilaterally. Next attention was brought to the open SI joint fusions. This was done by using the computer navigated awl crossing the SI joint. Through direct visualization as well. The pedicle feeler was used to make sure was crossed no breaches. The canal was then filled with bone graft. And then a computer navigated SI joint fusion screws placed across the SI joint. This process was done on both the right and the left side. Once all the screws were placed attention was then brought to doing the laminectomy at L3-4. Patient had previous laminectomies performed on the right side. At this point the spinous process was taken down at L3-4. High-speed bur was used to take down the laminectomy. The facet joints were also taken down using the high-speed bur burring completely out so that the L3 nerves were identified. The facet was taken down and the medial aspect of the facet up to the pedicle was taken down bilaterally of the L4 pedicle. Using Kerrison osiris r. Ligamentum flavum was taken down as far as the kidney there was scarring. However the dura was completely opened and felt to be adequately decompressed. The L3 nerves were traced around the L3 pedicle out where the foramen was in the L4 nerves were traced around the L4 pedicles. Laminectomy was performed at L4 at the L4-5 level. Lamina was taken down with a high-speed bur medial aspect of facet joints were taken down the high-speed bur curved. Kerrison we reviewed used to remove the remaining bone. The ligament flavum was taken down from L4-L5 there was significant scarring. The L4 nerve roots were traced out the L4-5 foramen and the L5 nerve was traced around the L5 pedicles bilaterally. Laminectomy was then performed L5-S1. Again the high-speed bur was used to take down the lamina of L5 the medial aspect of facet joints were taken down with a high-speed bur curved curette and Kerrisons were used to take the remaining bone down the ligament flavum was taken down from L5-S1. S1 nerve was traced around the S1 pedicle as the L5 nerve roots were traced out the L5-S1 foramen. Wounds were then irrigated. The jorge was then attached from L3, L4, L5, S1 and into the iliac screw completing the lumbopelvic fixation. The screw caps were then torqued into position. This was done bilaterally. Next attention was brought to decorticating the transverse processes of L3 bilaterally L4 bilaterally L5 bilaterally and sacral ala bilaterally as well as the SI joints. Osteoamp bone graft was then packed into the gutters. And across the SI joint. Vancomycin powder was placed deep drain was placed and wound was closed in layered fashion with Vicryl and Monocryl. Sterile dressings were applied patient was transferred to the PACU in stable condition.
--- NOTE | 2024-09-22 13:45 | ANE.PACU2 ---
Inpatient post-anesthesia follow up: Airway intact: Yes Vital signs: Temperature 97.1 F Pulse Rate 73 Respiratory Rate 18 Blood Pressure 173/52 Pulse Oximetry 98 Oxygen Delivery Me thod Nasal Cannula Oxygen Flow Rate 2 Fraction of Inspir ed Oxygen Hydration adequate: Yes Nausea and vomiting: No Pain level: 1 Mental status: Baseline
[2024-09-22] MEDS: lactated ringers 1,000 ML 90 ML IV (15:01)
[2024-09-22] MEDS: meclizine 25 mg tablet PO ×2 (15:07→21:06)
[2024-09-22] MEDS: HYDROcodone-acetaminophen 5-325 mg Tablet PO ×2 (17:44→21:35)
[2024-09-22] MEDS: docusate sodium 100 mg Capsule PO (17:44)
--- OUTSIDE RECORDS SUMMARY | 2024-09-22 19:03 | XMS_ITS | Encounter Summary ---
Author Organization [facility] Address [address] [place] [address] Care Team Providers Care Office Clinician Name Role Phone Mellisa England Primary Care [facility] Encounter Details Date Type Department Care Team (Latest Contact Info) Description 08/01/2001 Outpatient Historical [facility] Medicine [address] [phone] Chanel Marquez MD NO ADDRESS ON FILE CYST OF THYROID (Primary Dx) Social History Tobacco Use Types Packs/Day Years Used Date Smoking Tobacco: Never Assessed Comments Unknown Sex and Gender Information Value Date Recorded Sex Assigned at Not on file 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
--- OUTSIDE RECORDS SUMMARY | 2024-09-22 19:03 | XMS_ITS | Encounter Summary ---
Author Organization [facility] Address [address] [place] [address] Care Team Providers Care Laundry Operator Name Role Phone Mellisa England Primary Care Provi [facility] Encounter Details Date Type Department Care Team (Latest Contact Info) Description 07/16/2001 Outpatient [facility] Medicine [address] [address] Neal Mcpherson, NO ADDRESS ON FILE OTHER MALAISE AND FATIGUE (Primary Dx); HYPOTHYROIDISM NOS; ESOPHAGEAL REFLUX Social History Tobacco Use Types Packs/Day Years Used Date Smoking Tobacco: Never Assessed Comments Unknown Sex and Gender Information Value Date Recorded Sex Assigned at Not on file 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
--- OUTSIDE RECORDS SUMMARY | 2024-09-22 19:03 | XMS_ITS | Encounter Summary ---
Author Organization [facility] Address [address] [facility] Attn: Epic Prelude ADT TAY FUNG [address] Care Team Providers Care Faculty Criminal Justice Name Role Phone Mellisa England Primary Care [facility] Encounter Details Date Type Department Care Team (Late st Contact Info) Description 11/26/2001 Outpatient Historical Anya Jean FNP [address] [place] [phone] Social History Tobacco Use Types Packs/Day Years Used Date Smoking Tobacco: Never Assessed Comments Unknown Sex and Gender Information Value Date Recorded Sex Assigned at Not on file 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
--- OUTSIDE RECORDS SUMMARY | 2024-09-22 19:03 | XMS_ITS | Encounter Summary ---
Author Organization [facility] Address [address] [place] [address] Care Team Providers Care Registrar Assistant Name Role Phone Mellisa England Primary Care Provi [facility] Encounter Details Date Type Department Care Team (Latest Contact Info) Description 10/16/2002 [facility] [address] [place] [address] Juan Poe MD NO ADDRESS ON FILE PREOP EXAM OTHER SPECIFIED (Primary Dx) Social History Tobacco Use Types Packs/Day Years Used Date Smoking Tobacco: Never Assessed Comments Unknown Sex and Gender Information Value Date Recorded Sex Assigned at Not on file 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
--- OUTSIDE RECORDS SUMMARY | 2024-09-22 19:03 | XMS_ITS | Encounter Summary ---
Author Organization [facility] Address [address] [facility] Attn: Epic Prelude ADT TAY FUNG [address] Care Team Providers Care Trolley Operator Name Role Phone Mellisa England Primary Care [facility] Encounter Details Date Type Department Care Team (Late st Contact Info) Description 09/03/2001 Outpatient Historical Anya Jean FNP [address] [place] [phone] Social History Tobacco Use Types Packs/Day Years Used Date Smoking Tobacco: Never Assessed Comments Unknown Sex and Gender Information Value Date Recorded Sex Assigned at Not on file 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
--- OUTSIDE RECORDS SUMMARY | 2024-09-22 19:03 | XMS_ITS | Encounter Summary ---
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) Social History Tobacco Use Types Packs/Day Years Used Date Smoking Tobacco: Never Assessed Comments Unknown Sex and Gender Information Value Date Recorded Sex Assigned at Not on file 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
--- OUTSIDE RECORDS SUMMARY | 2024-09-22 19:03 | XMS_ITS | Encounter Summary ---
Author Organization [employer] Address 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
--- OUTSIDE RECORDS SUMMARY | 2024-09-22 19:03 | XMS_ITS | Encounter Summary ---
Author Organization [employer] Address 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
--- OUTSIDE RECORDS SUMMARY | 2024-09-22 19:03 | XMS_ITS | Encounter Summary ---
Author Organization [employer] [facility] Address [address] [place] [address] Care Team Providers Care Bander Operator Name Role Phone Mellisa England OUTSIDE SALES ENGINEER Primary Care Provi [facility] Encounter Details Date Type Department Care Team (Late st Contact Info) Description 01/12/2016 [address] [place] [address] Mellisa England, [facility] [address] [place] [phone] Hemoptysis (Primary Dx) Social History Tobacco Use Types Packs/Day Years Used Date Smoking Tobacco: Never Assessed Comments Unknown Sex and Gender Information Value Date Recorded Sex Assigned at Not on file 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 No acute cardiopulmonary disease. [id number] ? Narrative 01/12/2016 1:16 PM CDT Exam: XR CHEST PA AND LATERAL Date/Time of Exam: 01/12/2016 10:00 AM Reason For Exam: Hemoptysis. Findings: PA and lateral projections of the chest fail to demonstrate pleural effusion. Peripheral septal lines are not evident. Heart size is normal without evidence of mediastinal widening or hilar adenopathy. Airspace pneumonia is not evident and there is no underlying pneumothorax. Granuloma is present in the right lung base. Lung volumes are normal. Mellisa [facility] Final Result documented in this encounter Visit Diagnoses Diagnosis Hemoptysis- Primary Hemoptysis, unspecified Hemoptysis Hemoptysis, unspecified documented in this encounter Care Teams Bander Operator Relationship Specialty Start Date End Date Mellisa England FNP PCP - General NURSE PRACTITIONER 01/12/16 documented as of this encounter
--- OUTSIDE RECORDS SUMMARY | 2024-09-22 19:03 | XMS_ITS | Encounter Summary ---
Author Organization [facility] Address [address] [place] [address] Care Team Providers Care Supervisor Channel Process Name Role Phone Mellisa England Primary Care Provi [facility] Encounter Details Date Type Department Care Team (Late st Contact Info) Description 11/06/2004 Outpatient Historical [facility] FY06 Dallas Ibarra MD [address] [place] [address] Social History Tobacco Use Types Packs/Day Years Used Date Smoking Tobacco: Never Assessed Comments Unknown Sex and Gender Information Value Date Recorded Sex Assigned at Not on file Legal Sex Female 4:49 AM SPARE HAND Gender Identity Not on file Sexual Orientation Not on file documented as of this encounter Plan of Treatment Not on file documented as of this encounter Visit Diagnoses Not on filedocumented in this encounter Care Teams Supervisor Channel Process Relationship Specialty Start Date End Date Mellisa England FNP PCP - General NURSE PRACTITIONER 01/12/16 documented as of this encounter
--- OUTSIDE RECORDS SUMMARY | 2024-09-22 19:03 | XMS_ITS | Encounter Summary ---
Author Organization [facility] Address [address] [place] [address] Care Team Providers Care Outside Property Agent Name Role Phone Mellisa England Primary Care Provi [facility] Encounter Details Date Type Department Care Team (Latest Contact Info) Description 10/10/[address] 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
--- OUTSIDE RECORDS SUMMARY | 2024-09-22 19:03 | XMS_ITS | Encounter Summary ---
Author Organization [facility] Address [address] [place] [address] Care Team Providers Care Moisture Conditioner Operator Name Role Phone Mellisa England Primary Care Provi [facility] Encounter Details Date Type Department Care Team (Latest Contact Info) Description 10/16/2002 Outpatient Historical [facility] Brandon Estill [address] [place] [phone] Juan Poe MD NO ADDRESS ON FILE DYSPLASIA OF VAGINA (Primary Dx) Social History Tobacco Use Types Packs/Day Years Used Date Smoking Tobacco: Never Assessed Comments Unknown Sex and Gender Information Value Date Recorded Sex Assigned at Not on file 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
--- OUTSIDE RECORDS SUMMARY | 2024-09-22 19:03 | XMS_ITS | Encounter Summary ---
Author Organization [facility] Address [address] [place] [address] Care Team Providers Care Social Work Program Coordinator Name Role Phone Mellisa England Primary Care Provi [facility] Encounter Details Date Type Department Care Team (Latest Contact Info) Description 02/05/2002 Outpatient Historical [facility] [address] [place] [address] [address] [place] [address] Eulogio Stubbs MD [address] [place] [phone] NONINFLAM DIS VULVA NEC (Primary Dx) Social History Tobacco Use Types Packs/Day Years Used Date Smoking Tobacco: Never Assessed Comments Unknown Sex and Gender Information Value Date Recorded Sex Assigned at Not on file 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
--- OUTSIDE RECORDS SUMMARY | 2024-09-22 19:03 | XMS_ITS | Encounter Summary ---
Author Organization [facility] Address [address] [place] [address] Care Team Providers Care Hand Washer Name Role Phone Mellisa England Primary Care Provi [facility] Encounter Details Date Type Department Care Team (Latest Contact Info) Description 11/06/2001 Outpatient Historical [facility] [address] [place] [address] [address] [place] [address] Eulogio Stubbs MD [address] [place] [phone] [place] IN SITU FEM GEN NEC (Primary Dx) Social History Tobacco Use Types Packs/Day Years Used Date Smoking Tobacco: Never Assessed Comments Unknown Sex and Gender Information Value Date Recorded Sex Assigned at Not on file 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
--- OUTSIDE RECORDS SUMMARY | 2024-09-22 19:03 | XMS_ITS | Encounter Summary ---
Author Organization [facility] Address [address] [place] [address] Care Team Providers Care Flight Attendant Name Role Phone Mellisa England [facility] Primary Care Provi [facility] Reason for Referral * Outpatient Services (Routine) - Closed Specialty Diagnoses / Procedures Referred By Contac t Referred To Contact Radiology Diagnoses Other screening mammogram Procedures MAMMO DIGITAL SCREEN BILAT Andrez Poe MD Phone: tel: fax: [facility] [address] [place] [address] Phone: tel: fax: Referral ID Status Reason Start Date Expiration Date Visits Re quested Visits Authorized [id number] Closed 12/09/2012 01/09/2014 1 1 Encounter Details Date Type Department Care Team (Latest Contact Info) Description 12/09/2012 Ancillary Orders [facility] Centralized Scheduling [address] [place] [address] Alon Poe MD [address] [address] Other screening mammogram (Primary Dx); Pulmonary nodule; Back pain; Hip pain Social History Tobacco Use Types Packs/Day Years Used Date Smoking Tobacco: Never Assessed Comments Unknown Sex and Gender Information Value Date Recorded Sex Assigned at Not on file 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 Hip articulations appear intact. ?? IMPRESSION negative for fracture the pelvis Procedure Note Chaitanya Carrington MD - 12/12/2012 PROCEDURE XR PELVIS, one view 12 December 2012 DESCRIPTION AP view the pelvis shows no pelvic fracture, diastases, or deformity. Hip articulations appear intact. IMPRESSION negative for fracture the pelvis Alon Poe MD DIAGNOSTIC IMAGING ORDERABLES F inal Result * XR LUMBAR SPINE 2 OR 3 VW (12/12/2012 10:56 AM CDT) Anatomical Region Laterality Modality Spine Computed Radiogr aphy 12/12/2012 10:2 3 AM CDT Narrative 12/12/2012 11:15 AM CDT PROCEDURE XR LUMBAR SPINE, three views 12 December 2012 DESCRIPTION AP and lateral lumbar spine views and collimated lateral L5-S1 projection show no acute fracture or spondylolisthesis. ??Vertebral body and disc space heights are maintained except at L5-S1 where the disc space cannot be visualized. ??This may be due to effacement of the disc with slight obliquity to the x-ray beam. ??There is sclerosis of the apophyseal joints at this level. ??Pedicles appear normal. ?? IMPRESSION 1. osteoarthritis at the lumbosacral junction 2. no acute fracture or loss of alignment seen Procedure Note Chaitanya Carrington MD - 12/12/2012 PROCEDURE XR LUMBAR SPINE, three views 12 December 2012 DESCRIPTION AP and lateral lumbar spine views and collimated lateral L5-S1 projection show no acute fracture or spondylolisthesis. Vertebral body and disc space heights are maintained except at L5-S1 where the disc space cannot be visualized. This may be due to effacement of the disc with slight obliquity to the x-ray beam. There is sclerosis of the apophyseal joints at this level. Pedicles appear normal. IMPRESSION 1. osteoarthritis at the lumbosacral junction 2. no acute fracture or loss of alignment seen us Alon Poe MD DIAGNOSTIC IMAGING ORDERABLES F inal Result * XR CHEST PA AND LATERAL (12/12/2012 10:56 AM CDT) Anatomical Region Laterality Modality Chest Computed Radiogr aphy 12/12/2012 10:2 3 AM CDT Narrative 12/12/2012 11:12 AM CDT PROCEDURE CHEST, 2 views 12 December 2012 COMPARISON Current: PA and lateral chest Prior: PA and lateral chest 21 May 2012 DESCRIPTION Frontal view of the chest shows no infiltrate or atelectasis and the cardiomediastinal silhouette appears normal. ??There is a granuloma in the right lung base again noted. ??There is mild hyperinflation. ??No significant interval change is seen. ?? On the lateral view, no infiltrate or spine sign is seen. Costophrenic angles are normal posteriorly. ?? IMPRESSION no acute infiltrate or interval change seen Procedure Note Chaitanya Carrington MD - 12/12/2012 PROCEDURE CHEST, 2 views 12 December 2012 COMPARISON Current: PA and lateral chest Prior: PA and lateral chest 21 May 2012 DESCRIPTION Frontal view of the chest shows no infiltrate or atelectasis and the cardiomediastinal silhouette appears normal. There is a granuloma in the right lung base again noted. There is mild hyperinflation. No significant interval change is seen. On the lateral view, no infiltrate or spine sign is seen. Costophrenic angles are normal posteriorly. IMPRESSION no acute infiltrate or interval change seen us Alon Poe MD DIAGNOSTIC IMAGING ORDERABLES F inal Result * MAMMO DIGITAL SCREEN BILAT (12/12/2012 10:21 AM CDT) Anatomical Region Laterality Modality Breast Bilateral Mammography 12/12/2012 9:59 AM CDT Addenda Addendum by Dafne Hammond MD on 01/01/2013 12:41 PM CDT ADDENDUM TO BILATERAL DIGITAL SCREENING MAMMOGRAM OF 12/12/2012: Comparison is now made with multiple prior exams going back to 2004. ??No significant change is seen. ??I would recommend follow up screening mammogram in one year. ?? KB/sdm ?T: ??01/01/2013 12:23 PM - transcribed in Epic - Narrative 12/17/2012 3:16 PM CDT SCREENING 12/12/2012 Bilateral craniocaudal and oblique views show heterogeneously dense tissue. ??Patient's prior films from [facility] are not here for comparison as yet. ??No dominant masses or suspicious calcifications are seen. ??No suspicious finding is seen on either side. This digital mammogram was also analyzed by the Computer Aided Detection System (CAD), R2 ImageChecker, Version 8.3. CONCLUSION: Benign finding category 2. ??I would recommend the outside films from [facility] be obtained for comparison. ??I would recommend followup screening mammogram in one year. LINDSAY/melissa ? - uploaded from [employer] - Procedure Note Dafne Hammond MD - 01/01/2013 SCREENING 12/12/2012 Bilateral craniocaudal and oblique views show heterogeneously dense tissue. Patient's prior films from [facility] are not here for comparison as yet. No dominant masses or suspicious calcifications are seen. No suspicious finding is seen on either side. This digital mammogram was also analyzed by the Computer Aided Detection System (CAD), R2 ImageChecker, Version 8.3. CONCLUSION: Benign finding category 2. I would recommend the outside films from [facility] be obtained for comparison. I would recommend followup screening mammogram in one year. LINDSAY/jaw - uploaded from [employer] - Alon Poe MD MAMMO ORDERABLES Edited Result - Final documented in this encounter Visit Diagnoses Diagnosis Other screening mammogram- Primary Pulmonary nodule Solitary pulmonary nodule Back pain Backache, unspecified Hip pain Pain in joint, pelvic region and thigh Other screening mammogram Pulmonary nodule Solitary pulmonary nodule Back pain Backache, unspecified Hip pain Pain in joint, pelvic region and thigh Hip pain Pain in joint, pelvic region and thigh documented in this encounter Care Teams Flight Attendant Relationship Specialty Start Date End Date Mellisa England FNP PCP - General NURSE PRACTITIONER 01/12/16 documented as of this encounter
--- OUTSIDE RECORDS SUMMARY | 2024-09-22 19:03 | XMS_ITS | Encounter Summary ---
Author Organization [facility] Address [address] [place] [address] Care Team Providers Care Electric Screw Driver Operator Name Role Phone Mellisa England Primary Care Provi [facility] Encounter Details Date Type Department Care Team (Latest Contact Info) Description 09/24/2005 Outpatient Historical [facility] [address] [place] [address] AMBULANCE, [place] Poisoning by Antiallergic and Antiemetic Drugs (Primary Dx) Social History Tobacco Use Types Packs/Day Years Used Date Smoking Tobacco: Never Assessed Comments Unknown Sex and Gender Information Value Date Recorded Sex Assigned at Not on file 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
--- OUTSIDE RECORDS SUMMARY | 2024-09-22 19:03 | XMS_ITS | Encounter Summary ---
Author Organization [facility] [employer] [facility] Address [address] [place] [address] Care Team Providers Care Dyslexia Teacher Name Role Phone Mellisa England Primary Care Provi [facility] Encounter Details Date Type Department Care Team (Late st Contact Info) Description 05/21/2012 Ancillary Orders [facility] [place] [address] [place] [address] Andrez Poe MD [address] [place] [id number] Social History Tobacco Use Types Packs/Day Years Used Date Smoking Tobacco: Never Assessed Comments Unknown Sex and Gender Information Value Date Recorded Sex Assigned at Not on file 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
--- OUTSIDE RECORDS SUMMARY | 2024-09-22 19:03 | XMS_ITS | Encounter Summary ---
Author Organization [facility] Address [address] Attn: Epic Prelude ADT [place] [address] Care Team Providers Care Director Meetings Name Role Phone Mellisa England Primary Care Provi [facility] Encounter Details Date Type Department Care Team (Late st Contact Info) Description 11/26/2001 Outpatient Historical Anya Jean FNP [address] [place] [phone] Social History Tobacco Use Types Packs/Day Years Used Date Smoking Tobacco: Never Assessed Comments Unknown Sex and Gender Information Value Date Recorded Sex Assigned at Not on file Legal Sex Female 4:49 AM 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
--- OUTSIDE RECORDS SUMMARY | 2024-09-22 19:03 | XMS_ITS | Encounter Summary ---
Author Organization [employer] Address 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
--- OUTSIDE RECORDS SUMMARY | 2024-09-22 19:03 | XMS_ITS | Encounter Summary ---
Author Organization [employer] Address [address] [place] [address] Care Team Providers Care Physical Therapy Professor Name Role Phone Mellisa England Primary Care Provi [facility] Encounter Details Date Type Department Care Team (Late st Contact Info) Description 09/06/2024 External Device Data STL ABSTRACTION Provider, Abstract NO ADDRESS ON FILE Social History Tobacco Use Types Packs/Day Years Used Date Smoking Tobacco: Never Assessed Comments No Sex and Gender Information Value Date Recorded Sex Assigned at Not on file Legal Sex Female 12:21 PM WHEEL BRAIDER Gender Identity Not on file Sexual Orientation Not on file documented as of this encounter Plan of Treatment Not on file documented as of this encounter Visit Diagnoses Not on filedocumented in this encounter Care Teams Physical Therapy Professor Relationship Specialty Start Date End Date Mellisa England FNP [address] [place] [phone] PCP - General NURSE PRACTITIONER 01/12/16 documented as of this encounter
--- OUTSIDE RECORDS SUMMARY | 2024-09-22 19:03 | XMS_ITS | Encounter Summary ---
Author Organization [facility] Address [address] [place] [address] Care Team Providers Care Piping Drafter Name Role Phone Mellisa England Primary Care Provi [facility] Encounter Details Date Type Department Care Team (Latest Contact Info) Description 09/17/2001 Outpatient Historical [facility] Medicine [address] [phone] Neal Mcpherson DO NO ADDRESS ON FILE Abn Pap Smear-Cervix (Primary Dx) Social History Tobacco Use Types Packs/Day Years Used Date Smoking Tobacco: Never Assessed Comments Unknown Sex and Gender Information Value Date Recorded Sex Assigned at Not on file 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
--- OUTSIDE RECORDS SUMMARY | 2024-09-22 19:03 | XMS_ITS | Encounter Summary ---
Author Organization [facility] Address [address] [place] [address] Care Team Providers Care Painter And Decorator Apprentice Name Role Phone Mellisa England Primary Care Provi [facility] Encounter Details Date Type Department Care Team (Latest Contact Info) Description 08/13/2001 Outpatient Historical [facility] Medicine [address] [address] Neal Mcpherson DO NO ADDRESS ON FILE NONTOX UNINODULAR GOITER (Primary Dx); PEPTIC ULCER NOS Social History Tobacco Use Types Packs/Day Years Used Date Smoking Tobacco: Never Assessed Comments Unknown Sex and Gender Information Value Date Recorded Sex Assigned at Not on file Legal Sex Female 4:49 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
--- OUTSIDE RECORDS SUMMARY | 2024-09-22 19:03 | XMS_ITS | Encounter Summary ---
Author Organization [facility] Address [address] Attn: Epic Prelude ADT [place] [address] Care Team Providers Care Forging Die Sinker Name Role Phone Mellisa England Primary Care Provi [facility] Encounter Details Date Type Department Care Team (Late st Contact Info) Description 07/16/2001 Outpatient Historical Anya Jean FNP [address] [place] [phone] Social History Tobacco Use Types Packs/Day Years Used Date Smoking Tobacco: Never Assessed Comments Unknown Sex and Gender Information Value Date Recorded Sex Assigned at Not on file Legal Sex Female 4:49 AM AML ANALYST Gender Identity Not on file Sexual Orientation Not on file documented as of this encounter Plan of Treatment Not on file documented as of this encounter Visit Diagnoses Not on filedocumented in this encounter Care Teams Forging Die Sinker Relationship Specialty Start Date End Date Mellisa England FNP PCP - General NURSE PRACTITIONER 01/12/16 documented as of this encounter
--- OUTSIDE RECORDS SUMMARY | 2024-09-22 19:03 | XMS_ITS | Encounter Summary ---
Author Organization [facility] Address [address] [place] [address] Care Team Providers Care Table Setter Name Role Phone Mellisa England Primary Care Provi [facility] Encounter Details Date Type Department Care Team (Latest Contact Info) Description 11/26/2001 Outpatient Historical [facility] Medicine [address] [phone] Neal Mcpherson DO NO ADDRESS ON FILE VAGINITIS NOS (Primary Dx) Social History Tobacco Use Types Packs/Day Years Used Date Smoking Tobacco: Never Assessed Comments Unknown Sex and Gender Information Value Date Recorded Sex Assigned at Not on file Legal Sex Female 4:49 AM HOE RUNNER Gender Identity Not on file Sexual Orientation Not on file documented as of this encounter Plan of Treatment Not on file documented as of this encounter Visit Diagnoses Diagnosis Vaginitis and vulvovaginitis, unspecified- Primary documented in this encounter Care Teams Table Setter Relationship Specialty Start Date End Date Mellisa England FNP PCP - General NURSE PRACTITIONER 01/12/16 documented as of this encounter
--- OUTSIDE RECORDS SUMMARY | 2024-09-22 19:03 | XMS_ITS | Clinical Summary ---
Author Organization [facility] Address [address] [address] [place] [address] Phone Care Team Providers Care Flow Specialist Name Role Phone Mellisa England [facility] Primary Care Provi [facility] Medications No known medications Immunizations Immunization Administration Dates Next Due Influenza Seasonal Unspecified Formulation IM Family History Medical History Relation Name Comments Cancer Maternal Aunt ESOPHAGEAL CAN CER Breast Cancer Maternal Cousin Cancer Maternal Grandmother ABDOMIN AL CANCER Cancer Maternal Uncle PROSTRATE CAN CER Cancer Mother ABDOMINAL CANCE R Ovarian Cancer Neg Hx Relation Name Status Comments Daughter NONE Maternal Aunt Maternal Cousin Alive Maternal Grandmother Maternal Uncle Mother Sister Alive Social History Tobacco Use Types Packs/Day Years Used Date Smoking Tobacco: Never Assessed Comments Unknown Sex and Gender Information Value Date Recorded Sex Assigned at Not on file Legal Sex Female 4:49 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 Gender Identity Not on file Sexual Orientation Not on file Occupation Industry Job Start Date Job End Date Not on file Not on file Not on file Not on file Plan of Treatment Health Maintenance Due Date Last Done Comments DTAP/TDAP/TD VACCINES (1 - Tdap) 1976 COLORECTAL SCREENING 2002 Colorectal Cancer Screening 2002 FIT-DNA Q 3 years 2002 FIT/FOBT Q 1 year 2002 Flex Sig/CT Colonography Q 5 years 2002 PNEUMOCOCCAL VACCINE 50+ YEA RS (1 of 1 - PCV) 12/03/2007 ZOSTER VACCINE (1 of 2) 12/03/2007 BREAST CANCER SCREENING 08/30/2017 08/31/19 17, 04/20/2015, 12/12/2012 OSTEOPOROSIS SCREENING 2022 INFLUENZA VACCINE (#1) 2024 04/16/1996 RSV VACCINE (60+ or ) (1 - 1-dose 75+ series) 2032 Procedures Procedure Name Priority Date/Time Associated Diagnosis Comments MAMMO SCREEN BILAT W OR WO CAD Routine 08/30/2016 2:17 PM DEPARTMENT STORE DOOR GREETER Breast cancer screening from Last 3 Months or Most Recently Relevant to Health Maintenance Results * MAMMO SCREEN BILAT W OR WO CAD (08/30/2016 2:17 PM DEPARTMENT STORE DOOR GREETER) Anatomical Region Laterality Modality Breast Bilateral Mammography Narrative 09/01/2016 7:29 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 Bilateral Mammogram Reason for Exam: Screening Comparison: Compared to: 12/12/2012 MAMMO DIGITAL SCREEN BILAT Findings: Bilateral CC and MLO views were obtained. This examination was reviewed with the aid of a computer-aided detection system(CAD). BREAST COMPOSITION: Scattered areas of fibroglandular density. The overall fibroglandular pattern is stable. No suspicious abnormality is identified. No significant new findings since the prior mammogram(s). Mellisa JUAN MAMMO ORDERABLES Fi nal Result from Last 3 Months or Most Recently Relevant to Health Maintenance Insurance MEDICAID [place] Care Teams Flow Specialist Relationship Specialty Start Date End Date Mellisa England FNP PCP - General NURSE PRACTITIONER 01/12/16
--- OUTSIDE RECORDS SUMMARY | 2024-09-22 19:03 | XMS_ITS | Encounter Summary ---
Author Organization [facility] Address [address] [place] [address] Care Team Providers Care Telesales Manager Name Role Phone Mellisa England Primary Care Provi [facility] Encounter Details Date Type Department Care Team (Latest Contact Info) Description 10/15/2001 Outpatient Historical [facility] [address] [place] [address] [address] [place] [address] Eulogio Stubbs MD [address] [place] [phone] [place] IN SITU FEM GEN NEC (Primary Dx) Social History Tobacco Use Types Packs/Day Years Used Date Smoking Tobacco: Never Assessed Comments Unknown Sex and Gender Information Value Date Recorded Sex Assigned at Not on file 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
--- OUTSIDE RECORDS SUMMARY | 2024-09-22 19:03 | XMS_ITS | Encounter Summary ---
Author Organization [facility] Address [address] [place] [address] Care Team Providers Care Technical Supervisor Name Role Phone Mellisa England Primary Care Provi [facility] Encounter Details Date Type Department Care Team (Latest Contact Info) Description 11/19/[address] 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
--- OUTSIDE RECORDS SUMMARY | 2024-09-22 19:03 | XMS_ITS | Encounter Summary ---
Author Organization [facility] Address [address] [place] [address] Care Team Providers Care Racking Technician Name Role Phone Mellisa England Primary Care [facility] Encounter Details Date Type Department Care Team (Latest Contact Info) Description 10/22/2002 Outpatient Historical [facility] Operating Room [address] [place] [address] Juan Poe MD NO ADDRESS ON FILE DYSPLASIA OF VAGINA (Primary Dx) Social History Tobacco Use Types Packs/Day Years Used Date Smoking Tobacco: Never Assessed Comments Unknown Sex and Gender Information Value Date Recorded Sex Assigned at Not on file Legal Sex Female 4:49 AM RN CLINICAL APPEALS Gender Identity Not on file Sexual Orientation Not on file documented as of this encounter Plan of Treatment Not on file documented as of this encounter Visit Diagnoses Diagnosis Dysplasia of vagina- Primary documented in this encounter Care Teams Racking Technician Relationship Specialty Start Date End Date Mellisa England FNP PCP - General NURSE PRACTITIONER 01/12/16 documented as of this encounter
--- OUTSIDE RECORDS SUMMARY | 2024-09-22 19:03 | XMS_ITS | Encounter Summary ---
Author Organization [facility] Address [address] [place] [address] Care Team Providers Care Rotor Coil Taper Name Role Phone Mellisa England Primary Care [facility] Encounter Details Date Type Department Care Team (Latest Contact Info) Description 11/12/2001 Outpatient [facility] Family Medicine [place] [address] [facility] [address] [place] [phone] Jamarcus Bolden MD [address] [facility] [address] [place] [phone] ABNORMAL CLINICAL FINDING NEC (Primary Dx) Social History Tobacco Use Types Packs/Day Years Used Date Smoking Tobacco: Never Assessed Comments Unknown Sex and Gender Information Value Date Recorded Sex Assigned at Not on file Legal Sex Female 4:49 AM RINK RAT Gender Identity Not on file Sexual Orientation Not on file documented as of this encounter Plan of Treatment Not on file documented as of this encounter Visit Diagnoses Diagnosis Other abnormal clinical finding- Primary documented in this encounter Care Teams Rotor Coil Taper Relationship Specialty Start Date End Date Mellisa England FNP PCP - General NURSE PRACTITIONER 01/12/16 documented as of this encounter
--- OUTSIDE RECORDS SUMMARY | 2024-09-22 19:03 | XMS_ITS | Encounter Summary ---
Author Organization [facility] Address [address] [place] [address] Care Team Providers Care Manager Highway Name Role Phone Mellisa England Primary Care Provi [facility] Encounter Details Date Type Department Care Team (Latest Contact Info) Description 07/25/2001 Outpatient Historical [facility] Medicine [address] [phone] Chanel Marquez MD NO ADDRESS ON FILE CYST OF THYROID (Primary Dx); NONTOX UNINODULAR GOITER; PEPTIC ULCER NOS Social History Tobacco Use Types Packs/Day Years Used Date Smoking Tobacco: Never Assessed Comments Unknown Sex and Gender Information Value Date Recorded Sex Assigned at Not on file Legal Sex Female 4:49 AM FLARE STITCHER Gender Identity Not on file Sexual Orientation Not on file documented as of this encounter Plan of Treatment Not on file documented as of this encounter Visit Diagnoses Diagnosis Cyst of thyroid- Primary Nontoxic uninodular goiter Peptic ulcer, unspecified site, unspecified as acute or chronic, without mention of hemorrhage, perforation, or obstruction documented in this encounter Care Teams Manager Highway Relationship Specialty Start Date End Date Mellisa England FNP PCP - General NURSE PRACTITIONER 01/12/16 documented as of this encounter
--- OUTSIDE RECORDS SUMMARY | 2024-09-22 19:03 | XMS_ITS | Clinical Summary ---
Author Organization [facility] Address [address] Naik: Epic Prelude ADT [place] [address] Care Team Providers Care Curtain Feller Blindstitch Name Role Phone Mellisa England [facility] Primary Care [facility] Encounters Date Type Department Care Team Description 09/17/2024 External Device Data ST[facility] ABSTRACTION Provider, Abstract 09/06/2024 External Device Data [facility] ABSTRACTION Provider, Abstract 09/05/2024 External Device Data [facility] ABSTRACTION Provider, Abstract 09/02/2024 External Device Data [facility] ABSTRACTION Provider, Abstract 08/20/2024 External Device Data [facility] ABSTRACTION Provider, Abstract 08/19/2024 External Device Data [facility] ABSTRACTION Provider, Abstract 07/23/2024 External Device Data [facility] ABSTRACTION Provider, Abstract 07/22/2024 External Device Data ST[facility] ABSTRACTION Provider, Abstract from Last 3 Months Immunizations Immunization Administration Dates Next Due Influenza Seasonal Unspecified Formulation IM Family History Medical History Relation Name Comments Cancer Maternal Aunt ESOPHAGEAL CAN CER Breast Cancer Maternal Cousin Cancer Maternal Grandmother ABDOMIN AL CANCER Cancer Maternal Uncle PROSTRATE CAN CER Cancer Mother ABDOMINAL CANCE R Colon Cancer Paternal Cousin Breast Cancer Sister KIERA Ovarian Cancer Neg Hx Relation Name Status Comments Daughter NONE Maternal Aunt Maternal Cousin Alive Maternal Grandmother Maternal Uncle Mother Paternal Cousin Sister KIERA Alive Social History Tobacco Use Types Packs/Day Years Used Date Smoking Tobacco: Never Assessed Comments No Sex and Gender Information Value Date Recorded Sex Assigned at Not on file Legal Sex Female 12:21 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 Gender Identity Not on file Sexual Orientation Not on file Plan of Treatment Health Maintenance Due Date Last Done Comments DTAP/TDAP/TD VACCINES (1 - Tdap) 1976 COLORECTAL SCREENING 2002 Colorectal Cancer Screening 2002 FIT-DNA Q 3 years 2002 FIT/FOBT Q 1 year 2002 Flex Sig/CT Colonography Q 5 years 2002 PNEUMOCOCCAL VACCINE 50+ YEA RS (1 of 1 - PCV) 12/03/2007 ZOSTER VACCINE (1 of 2) 12/03/2007 OSTEOPOROSIS SCREENING 2022 INFLUENZA VACCINE (#1) 2024 04/16/1996 BREAST CANCER SCREENING 03/26/2025 03/26/20 24, 08/30/2016, 04/20/2015, Additional history exists RSV VACCINE (60+ or ) (1 - 1-dose 75+ series) 2032 Procedures Procedure Name Priority Date/Time Associated Diagnosis Comments MAMMO 3D SONYA SCREEN BILAT W OR WO CAD Routine 03/26/2024 1:00 PM CDT Encounter for screening mammogram for breast cancer from Last 3 Months or Most Recently Relevant to Health Maintenance Results * MAMMO 3D SONYA SCREEN BILAT W OR WO CAD (03/26/2024 1:00 PM CDT) Anatomical Region Laterality Modality Breast Bilateral Mammography, Dig ital Radiography Impressions 04/03/2024 9:43 PM CDT : ??No mammographic evidence of malignancy. BI-RADS ASSESSMENT: ??1 - Negative RECOMMENDATION: Routine annual screening mammography. Narrative 04/03/2024 9:43 PM CDT EXAM: ??MAMMO SCRN BILAT 3D SONYA W OR WO CAD INDICATION: ??Screening ? COMPARISON: ??02/13/2022 MAMMO PRIOR STUDY, 08/30/2016 MAMMO SCREEN BILAT W OR WO CAD, and 12/12/2012 MAMMO SCREEN BILAT W OR WO CAD BREAST COMPOSITION: ??The breasts are heterogeneously dense, which may obscure small masses. FINDINGS: RIGHT BREAST: There are no suspicious masses, calcifications, or areas of architectural distortion. LEFT BREAST: ??There are no suspicious masses, calcifications, or areas of architectural distortion. us John Hall MD MAMMO ORDERABLES Final R esult from Last 3 Months or Most Recently Relevant to Health Maintenance Insurance MEDICAID [place] [facility] DUAL COMPLETE HMO [facility] [id number] Care Teams Curtain Feller Blindstitch Relationship Specialty Start Date End Date Mellisa Egnland FNP [address] [place] [phone] PCP - General NURSE PRACTITIONER 01/12/16
--- OUTSIDE RECORDS SUMMARY | 2024-09-22 19:03 | XMS_ITS | Encounter Summary ---
Author Organization [facility] Address [address] [place] [address] Care Team Providers Care Wastewater Design Engineer Name Role Phone Mellisa England Primary Care Provi [facility] Encounter Details Date Type Department Care Team (Late st Contact Info) Description 05/21/2012 Ancillary Orders [facility] Admitting [address] [place] [address] Andrez Poe MD [address] [place] [phone] COPD (chronic obstructive pulmonary disease) ([facility]) Social History Tobacco Use Types Packs/Day Years Used Date Smoking Tobacco: Never Assessed Comments Unknown Sex and Gender Information Value Date Recorded Sex Assigned at Not on file Legal Sex Female 4:49 AM CONTINUOUS CONVEYOR SCREEN DRIER Gender Identity Not on file Sexual Orientation Not on file documented as of this encounter Plan of Treatment Not on file documented as of this encounter Results * XR CHEST PA AND LATERAL (05/21/2012 1:05 PM CONTINUOUS CONVEYOR SCREEN DRIER) Anatomical Region Laterality Modality Chest Computed Radiogr aphy 05/21/2012 12:5 8 PM CONTINUOUS CONVEYOR SCREEN DRIER Narrative 05/22/2012 8:52 AM CONTINUOUS CONVEYOR SCREEN DRIER PROCEDURE CHEST, 2 views 21 May 2012 COMPARISON Current: PA and lateral chest 21 May 2012 Prior: none DESCRIPTION Frontal view of the chest shows no infiltrate or atelectasis and the cardiomediastinal silhouette appears normal. There is mild hyperinflation. ??Old granulomatous disease is noted with a dense granuloma in the right lung base. ?? Costophrenic angles are sharp laterally and posteriorly. ?? On the lateral view, no infiltrate or spine sign is seen. IMPRESSION essentially normal chest views Procedure Note Chaitanya Carrington MD - 05/22/2012 PROCEDURE CHEST, 2 views 21 May 2012 COMPARISON Current: PA and lateral chest 21 May 2012 Prior: none DESCRIPTION Frontal view of the chest shows no infiltrate or atelectasis and the cardiomediastinal silhouette appears normal. There is mild hyperinflation. Old granulomatous disease is noted with a dense granuloma in the right lung base. Costophrenic angles are sharp laterally and posteriorly. On the lateral view, no infiltrate or spine sign is seen. IMPRESSION essentially normal chest views us Andrez Poe MD DIAGNOSTIC IMAGING ORDERABLE S Final Result documented in this encounter Visit Diagnoses Diagnosis COPD (chronic obstructive pulmonary disease) (CMS/HCC) Chronic airway obstruction, not elsewhere classified COPD (chronic obstructive pulmonary disease) (CMS/HCC) Chronic airway obstruction, not elsewhere classified documented in this encounter Care Teams Wastewater Design Engineer Relationship Specialty Start Date End Date Mellisa England FNP PCP - General NURSE PRACTITIONER 01/12/16 documented as of this encounter
--- OUTSIDE RECORDS SUMMARY | 2024-09-22 19:03 | XMS_ITS | Encounter Summary ---
Author Organization [facility] Address [address] [place] [address] Care Team Providers Care Sports Broadcasting Internship Name Role Phone Mellisa England Primary Care Provi [facility] Reason for Referral * Outpatient Services (Routine) - Closed Specialty Diagnoses / Procedures Referred By Contac t Referred To Contact Radiology Diagnoses Breast cancer screening Procedures MAMMO SCREEN BILAT W OR WO CAD Mellisa England FNP Phone: tel: fax: [facility]amm[facility] [place] [address] [place] [address] Phone: tel: fax: Referral ID Status Reason Start Date Expiration Date V isits Requested Visits Authorized [id number] Closed [facility] View CTS to Schedule (SGF) 08/22/2016 09/22/2017 1 1 EQUIN COLORING ARTIST Encounter Details Date Type Department Care Team (Late st Contact Info) Description 08/22/2016 Ancillary Orders [facility] Centralized Scheduling [address] [place] [address] Mellisa England FNP [address] [place] [address] Breast cancer screening Social History Tobacco Use Types Packs/Day Years Used Date Smoking Tobacco: Never Assessed Comments Unknown Sex and Gender Information Value Date Recorded Sex Assigned at Not on file Legal Sex Female 4:49 AM MANNEQUIN COLORING ARTIST Gender Identity Not on file Sexual Orientation Not on file Occupation Industry Job Start Date Job End Date Not on file Not on file Not on file Not on file documented as of this encounter Plan of Treatment Not on file documented as of this encounter Results * MAMMO SCREEN BILAT W OR WO CAD (08/30/2016 2:17 PM MANNEQUIN COLORING ARTIST) Anatomical Region Laterality Modality Breast Bilateral Mammography Narrative 09/01/2016 7:29 AM MANNEQUIN COLORING ARTIST Bilateral Mammogram Reason for Exam: Screening Comparison: [...] Mellisa JUAN MAMMO ORDERABLES Fi nal Result documented in this encounter Visit Diagnoses Diagnosis Breast cancer screening Breast screening, unspecified Breast cancer screening Breast screening, unspecified documented in this encounter Care Teams Sports Broadcasting Internship Relationship Specialty Start Date End Date Mellisa England FNP PCP - General NURSE PRACTITIONER 01/12/16 documented as of this encounter
--- OUTSIDE RECORDS SUMMARY | 2024-09-22 19:03 | XMS_ITS | Encounter Summary ---
Author Organization [facility] Address [address] [place] [address] Care Team Providers Care Outside Plant Field Engineer Name Role Phone Mellisa England Primary Care Provi [facility] Encounter Details Date Type Department Care Team (Latest Contact Info) Description 09/03/2001 Outpatient Historical [facility] Medicine [address] [phone] Neal Mcpherson DO NO ADDRESS ON FILE Gynecologic examination (Primary Dx); VAGINITIS NOS Social History Tobacco Use Types Packs/Day Years Used Date Smoking Tobacco: Never Assessed Comments Unknown Sex and Gender Information Value Date Recorded Sex Assigned at Not on file Legal Sex Female 4:49 AM DIRECTOR PATIENT Gender Identity Not on file Sexual Orientation Not on file documented as of this encounter Plan of Treatment Not on file documented as of this encounter Visit Diagnoses Diagnosis Gynecologic examination- Primary Gynecological examination Vaginitis and vulvovaginitis, unspecified documented in this encounter Care Teams Outside Plant Field Engineer Relationship Specialty Start Date End Date Mellisa England FNP PCP - General NURSE PRACTITIONER 01/12/16 documented as of this encounter
--- OUTSIDE RECORDS SUMMARY | 2024-09-22 19:04 | XMS_ITS | Encounter Summary ---
Author Organization [facility] Address [address] [place] [address] Care Team Providers Care Delta System Freight Car Cleaner Name Role Phone Mellisa England Primary Care Provi [facility] Encounter Details Date Type Department Care Team (Latest Contact Info) Description [address] 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
--- OUTSIDE RECORDS SUMMARY | 2024-09-22 19:04 | XMS_ITS | Encounter Summary ---
Author Organization [facility] Address [address] [place] [address] Care Team Providers Care Map Editor Name Role Phone Mellisa England Primary Care Provi [facility] Encounter Details Date Type Department Care Team (Late st Contact Info) Description 08/28/2004 Outpatient Historical [facility] Dallas Ibarra MD [address] [place] [phone] Social History Tobacco Use Types Packs/Day Years Used Date Smoking Tobacco: Never Assessed Comments Unknown Sex and Gender Information Value Date Recorded Sex Assigned at Not on file Legal Sex Female 4:49 AM TRAIN ANNOUNCER Gender Identity Not on file Sexual Orientation Not on file documented as of this encounter Plan of Treatment Not on file documented as of this encounter Visit Diagnoses Not on filedocumented in this encounter Care Teams Map Editor Relationship Specialty Start Date End Date Mellisa England FNP PCP - General NURSE PRACTITIONER 01/12/16 documented as of this encounter
[2024-09-22] MEDS: metoprolol succinate ER (24 HR) 25 mg Tablet 12.5 MG PO (22:42)
[2024-09-22] MEDS: lisinopril 20 mg Tablet PO (22:42)
[2024-09-23 00:27] VITALS: RESP 17
[2024-09-23] MEDS: morphine 4 mg/mL SDV 1 mL 2 MG IVP (00:27)
[2024-09-23] MEDS: lactated ringers 1,000 ML 90 ML IV (01:39)
[2024-09-23 04:00] VITALS: BP 146/59; PULSE 83; RESP 20; TEMP 37.1; O2SAT 96
[2024-09-23] MEDS: venlafaxine ER (24HR) 150 mg Capsule PO (06:07)
[2024-09-23 07:22] VITALS: BP 144/55; PULSE 82; RESP 16; TEMP 36.8; O2SAT 90
--- NOTE | 2024-09-23 08:12 | PM.DCS ---
Discharge Providers Date of Admission: 09/22/24 13:24 Date of Discharge: September 23, 2024 Attending Provider at Admission: Mingo Wetzel DO Attending Provider at Discharge: Mingo Wetzel DO Primary Care Provider: Anne Marie Hannah MD Physical Exam Narrative: Pain controlled sit upright in bed about to eat breakfast. Urinary Catheter Management: Martini: Cath Placed During This Visit: yes Reason for Continuing Indwelling Catheter: Other Urinary Catheter Date of Insertion: 09/22/24 Urinary Catheter Time of Insertion: 10:00 Discharge Data Studies Completed and Pending Completed Studies During Hospitalization Category Date Time Status XR lumbar spine 2-3V* [id number] Routine Exams 09/22/24 12:53 Completed Pending at discharge Category Date Time Status CBC Auto Diff [Complete Blood Count w/Auto] Routine Lab 09/23/24 07:23 Ordered CMP [Comprehensive Metabolic Panel] Routine Lab 09/23/24 07:23 Ordered Laboratory Results Urine Color Yellow (Yellow) 09/22/24 06:00 Urine Appearance Clear (CLEAR) 09/22/24 06:00 Urine pH 6.0 (5-7) 09/22/24 06:00 Ur Specific [place] 1.009 (1.005-1.030) 09/22/24 06:00 Urine Protein Negative (Negative) 09/22/24 06:00 Urine Glucose (UA) Negative (Normal) 09/22/24 06:00 Urine Ketones Trace (Negative) 09/22/24 06:00 Urine Blood Negative (Negative) 09/22/24 06:00 Urine Nitrate Negative (Negative) 09/22/24 06:00 Urine Bilirubin Negative (Negative) 09/22/24 06:00 Urine Urobilinogen 0.2 mg/dL (Negative) 09/22/24 06:00 Ur Leukocyte Esterase Negative (Negative) 09/22/24 06:00 Urine RBC 0-2 /hpf (0-2) 09/22/24 06:00 Urine WBC 0-5 /hpf (0-5) 09/22/24 06:00 Ur Squamous Epith Cells 0-5 /hpf (0-5) 09/22/24 06:00 Amorphous Sediment Not Reportable 09/22/24 06:00 Urine Bacteria None seen /hpf (NONE) 09/22/24 06:00 Hyaline Casts 4.52 /lpf 09/22/24 06:00 Blood Type A Positive 09/22/24 07:15 Rho(D) Type Rh positive 09/22/24 07:15 Antibody Screen Negative 09/22/24 07:15 Vitals Last Vital Signs Temp 98.2 F 09/23/24 07:22 Pulse 82 09/23/24 07:22 Resp 16 09/23/24 07:22 BP 144/55 09/23/24 07:22 Pulse Ox 90 09/23/24 07:22 O2 Del Method Room Air 09/23/24 07:22 O2 Flow Rate 2 09/23/24 04:00 Discharge Plan Discharge Patient Disposition: Home Condition: Stable Prescriptions: New hydrocodone-acetaminophen 5-325 mg tablet 1 - 2 tab PO .Q4-6H Qty: 40 0RF Continued simvastatin 40 mg tablet 40 mg PO DAILY Qty: 90 3RF meclizine 25 mg tablet 25 mg PO TID Qty: 90 2RF oxybutynin chloride 15 mg tablet extended release 24hr 15 mg PO DAILY Qty: 90 3RF Rx Instructions: She can take 1tablet daily. lisinopril 20 mg tablet 20 mg PO DAILY 90 Days Qty: 90 3RF metoprolol succinate 25 mg tablet extended release 24 hr 12.5 mg PO DAILY Qty: 90 3RF venlafaxine 150 mg capsule,extended release 24hr 150 mg PO QAM Qty: 120 3RF Rx Instructions: Take one capsule by mouth every morning sulfamethoxazole-trimethoprim [Bactrim DS] 800-160 mg tablet 1 tab PO BID Qty: 20 0RF multivitamin Tablet 1 tab PO DAILY levothyroxine 50 mcg tablet 50 mcg PO DAILY Rx Instructions: TAKE 1 TABLET BY MOUTH DAILY gabapentin 300 mg capsule 300 mg PO DAILY Rx Instructions: 1 capsule in a.m. and 2 capsules orally daily; omeprazole 20 mg capsule,delayed release(DR/EC) 20 mg PO DAILY Held aspirin 81 mg tablet,delayed release (DR/EC) 81 mg PO DAILY Hold Instructions: Resume on 09/25/24. Discontinued acetaminophen 650 mg tablet extended release 650 mg PO Q8H PRN (Reason: pain) Qty: 90 3RF tramadol 50 mg tablet 50 mg PO Q8H PRN (Reason: pain) 30 Days Qty: 60 3RF Rx Instructions: She has taken safely in the past. Discharge Orders: Discharge Order (Routine); Ordered 09/23/24 Ordered By: Mingo Wetzel Discharge Diet: Advance as tolerated Discharge Activity: Limit activity as instructed Patient Instructions: Acute Wound Care (DC), Opioid Safety, Post Anesthesia Care Activity Restrictions/Additional Instructions: Thank you for [facility] for your care! The following is a list of instructions, from your provider, to follow upon your discharge to ensure you have the optimal recovery from your recent injury orsurgery. Follow-up care is a whittaker part of your treatment and safety. Be sure to make and go to all appointments, and call your doctor if you are having problems. If you do not already have a follow-up appointment made, call Dr. Wetzel office in the next 1-3 days to make follow up appointment for 1 weeks at [phone]. It is also a good idea to know your test results and keep a list of the medicines you take. Medications will be prescribed for you at your provider's discretion. These medications are to be used as instructed; if they are taken more often that prescribed they will not be refilled early and in most cases will not be refilled at all. > When a refill is needed,you should contact kayla gatica 2-3 business days before your prescription runs out. Medications will NOT be refilled by applications development consultant providers after hours! > Many pain medications contain Tylenol (Acetaminophen). Do not consume more than 4,000 mg of Tylenol per day in total with any combination ofmedications. > Pain medications can cause constipation. Please use an over the counter stool softener as directed, while taking pain medications. Consulty our local pharmacist with questions or recommendations on stool softeners. If constipation persists, contact our office or your primary care provider. > While under our care,you are not to receive pain medications or other controlled substances from any other provider unless our office is notified and approves. Any attempts to do so will result in refusal to prescribe any further pain medications and possible dismissal from our practice. ? Keep dressing on until we see you in clinic. ? Showering is permitted, however we ask that you do not take a bath, sit in a whirlpool / Jacuzzi, or go swimming for 1 month. For only the first 2 days after surgery, lt wilt be necessary for you to cover your wound/dressing with plastic and tape to keep it dry. ? Walking is essential for the healing process after surgery. We would like you to slowly advance your walking. This should be done on relatively flat clear ground (inside or out) or can be done on a treadmill. Remember this goal does not have to happen all at once, slowly increase your distance and duration. This can be broken into more more than one walk per day as tolerated. Patients who walk as directed after surgery rarely require Physical Therapy. In the unlikely event this issue arises your provider will direct hospital staff to make the appropriate arrangements. ? No lifting over 5 pounds {a gallon of milk) or bending/twisting until further notice. Each of these activities places an unnecessary amount of stress onto the body and can impede the delicate healing process. > Instead of bending at the waist, keep your back straight and bend at the knees. > Instead of twisting your torso, keep your back straight and turn your entire body with your feet. ? You may sleep in any position which makes you comfortable. Many patients find comfort sleeping in a reclining chair. It is not abnormal to have difficulty sleeping for the first several weeks following your surgery. We recommend trying Benadry! or Tylenol PM as directed to help with your sleeping difficulties. Both medications are over the counter and available withoutprescription. ? NO SMOKING!!! Smoking dramatically increases the probability of developing postoperative wound infections. ? Common complaints after lumbar and/or thoracic spine surgery include, but are not limited to: numbness and/or tingling in the legs, pain around the incision and surrounding tissues, muscle spasms, or stiffness of the middle to low back. Contact our office if these symptoms persist or if an acute change occurs. ? No driving for the first 3-5days, and not while taking narcotics [] until seen at your follow-up appointment and cleared. There are no restrictions for riding on short trips, however if you take a longer trip, arrangements should be made to make regular stops to get out of the vehicle and stretch . ? Swelling is an unfortunate event that will take place with any surgery and is the primary source of your postoperative discomfort. While walking and regular approved activities helps control inflammation, there are additional steps you can take to minimizeswelling. > Place ice over the surgical site and surrounding tissue for twenty minutes, followed by applying a low/medium heat (heating pad) for an additional twenty minutes every 1-2 hours as needed for painrelief. > You may use of over the counter anti-inflammatory medications (Ibuprofen, Motrin, Aleve, Advil, etc) as directed on the package label. These types of medicines wm significantly reduce the amount of discomfort you experience after surgery from swelling. It should be noted that if you have and allergy to any of these medications, or a history of ulcers or kidney disease you should consult you primary care provider prior to starting these medications. Discharge Attestations Time Spent in Discharge Care*: less than 30 min Quality Metrics Clinical Quality Measures [ No reported AMI, CVA or VTE this stay] Coding Level of Care Code Acute Code for Chg Fwd
--- NOTE | 2024-09-23 08:13 | XRR_ITS ---
PROCEDURE INFORMATION: Exam: XR Spine; Cervical Exam date and time: 09/23/2024 8:24 AM Age: 68 years old Clinical indication: Condition or disease; Condition/disease: C1-c2 fracture; Additional info: C1-c2 fracture just need lateral upright x-ray TECHNIQUE: Imaging protocol: XR of the spine. Exam focused on the cervical spine. Views: 1 view. COMPARISON: CT head wo con* [id number] 03/04/2023 11:52 PM FINDINGS: Bones/joints: History indicates C1-C2 fractures. This is difficult to appreciate on this single plain x-ray. 3 mm anterior subluxation of C6 on C7. Otherwise, grossly normal alignment on this single lateral view. C7 is mostly obscured by overlying structures. Moderate to severe degenerative disc disease from the C4 level to the C7 level. Otherwise, grossly unremarkable. Soft tissues: Normal. XR/XR cervical spine 1V [id number] IMPRESSION: 1. History indicates C1-C2 fractures. This is difficult to appreciate on this single plain x-ray. 3 mm anterior subluxation of C6 on C7. Otherwise, grossly normal alignment on this single lateral view. 2. No other acute findings identified on this single lateral view.
[2024-09-23 08:18] LABS: Basophils % 0.1 %; Hematocrit 28.7 % (36-47); Lymphocytes # 1.7 10^3/uL (0.8-4.8); Lymphocytes % 16.8 %; Mean Corpuscular HGB Conc 31.7 g/dL (30-55); Mean Corpuscular Hemoglobin 27.1 pg (27-33); Mean Corpuscular Volume 85.4 fl (85-98); Mean Platelet Volume 10.3 fL (7.4-10.4); Monocytes % 9.7 %; Neutrophils % 73.1 %; Nucleated Red Blood Cells % 0 %; Platelet Count 286 10^3/cmm (157-399); Red Blood Count 3.36 10^6/uL (3.85-5.65); Red Cell Distribution Width 15.9 % (12.1-15.1); White Blood Count 9.84 10^3/uL (3.29-11.43)
[2024-09-23] MEDS: HYDROcodone-acetaminophen 5-325 mg Tablet PO (08:32)
[2024-09-23] MEDS: meclizine 25 mg tablet PO (08:32)
[2024-09-23] MEDS: oxybutynin chloride XL 5 MG TABLET 15 MG PO (08:32)
[2024-09-23] MEDS: lisinopril 20 mg Tablet PO (08:33)
[2024-09-23] MEDS: pantoprazole DR 40 mg Tablet PO (08:33)
[2024-09-23] MEDS: multivitamin therapeutic Tablet 1 TAB PO (08:33)
[2024-09-23] MEDS: levothyroxine 50 mcg Tablet PO (08:33)
[2024-09-23] MEDS: metoprolol succinate ER (24 HR) 25 mg Tablet 12.5 MG PO (08:33)
[2024-09-23] MEDS: ketorolac 30 mg/mL INJ IVP (08:33)
[2024-09-23] MEDS: gabapentin 300 mg Capsule PO (08:33)
[2024-09-23] MEDS: docusate sodium 100 mg Capsule PO (08:33)
[2024-09-23] MEDS: atorvastatin 40 mg Tablet 20 MG PO (08:34)
[2024-09-23 08:42] LABS: Alanine Aminotransferase 17 U/L (0-33); Albumin Level 3.5 g/dL (3.5-5.2); Alkaline Phosphatase 70 U/L (35-105); Anion Gap 15.2 (5-19); Aspartate Amino Transferase 41 U/L (0-32); Blood Urea Nitrogen 16 mg/dL (8-23); Calcium 8.7 mg/dL (8.5-10.5); Carbon Dioxide 19 mmol/L (22-29); Chloride 101 mmol/L (98-107); Creatinine Clr Calc Pharmacy 43.8906; Globulin 2.9 g/dL (1.3-4.6); Glomerular Filtration Rate 55.5 mL/min (90-130); Glucose 128 mg/dL (65-115); Osmolality Calculated 275 mOsm/kg (285-295); Potassium 4.2 mmol/L (3.5-5.1); Sodium 131 mmol/L (136-145); Total Bilirubin 0.2 mg/dL (0.15-1.2); Total Protein 6.4 g/dL (6.6-8.7)
--- NOTE | 2024-09-23 09:19 | PC.NURSE ---
Urinary catheter removed. 9.5cc of NS removed from balloon. Patient tolerated well. Hemovac drain emptied and pressure was held by a 2x2 and covered with a dressing.
--- NOTE | 2024-09-23 09:41 | PC.CHAP ---
Pastoral Care Encounter/Spiritual Assessment Type of Contact [] Declined gasket notcher visit [] Patient/Family/Request visit [] Outpatient visit [] Follow-up visit [] Physician referral [] Code/Alert [x] Routine visit [] Staff referral [] Actively dying [] Patient sleeping [] Family support [] [] Out of room [] Palliative care [] [] Receiving care in room [] Pre-surgical visit [] Trauma [] Long length of stay [] ICU visit [] Other: Relational/Emotional Strength [x] Patient feels connected with others/family/visitors/staff [] Distress [] Loneliness/isolation [] Abandonment Spirituality of Patient [x] Person of [place] [x] Attends Rastafarian of their [place] [x] Believes in Prayer [x] Reads Bible or Cheondoism materials [] There are Spiritual issues to be addressed Reproduction Specialist Interventions [x] Prayer [x] Active listening [x] Non-anxious presence [x] Spiritual/emotional support [] Crisis/trauma care [] Spiritual counseling [] Bereavement support [] Provided bereavement packet [] Provided Bible/devotional materials [] Provided toy/stuffed animal, coloring book to patient or family member [] Provided Communion [] Anointing/[place] [] Salvation [x] Completed spiritual assessment [] Other: Impact on Illness or Injury [] Angry [] Fearful [] Anxious [] Often cries [] Exhaustion [] Unable to work [] Unable to attend faith [] Unable to walk/stand [] Unable to read [] Unable to drive [] Unable to eat/drink [] Unable to sleep [] Unable to be with family [] Patient intubated [] Other: Summary Time spent with patient 5 min
[2024-09-23 11:25] VITALS: BP 90/51; PULSE 70; RESP 18; TEMP 36.7; O2SAT 90
--- NOTE | 2024-09-23 11:47 | PC.NURSE ---
Discharge Note Patient discharged to home via private vehicle accompanied by . Discharge instructions reviewed with patient and/or technical support representative. Mobile pharmacy medications and/or prescriptions provided. Belongings/home medications returned.
[2024-09-23 11:48] VITALS: BP 144/55; PULSE 82; RESP 16; TEMP 36.8; O2SAT 90
== END 2024-09-23 12:39 | disposition home or self-care (01) | DRG 448 ==
LOC: MEDSURG 19:00
PROVIDERS: Admitting Provider Orthopaedic Surgery; PCP Family Medicine; Visit Provider Orthopaedic Surgery
PROC: 0SG1071 Fusion of 2 or more Lumbar Vertebral Joints with Autologous Tissue Substitute, Posterior Approach, Posterior Column, Open Approach (ICD-10-PCS; principal; 2024-09-22 08:50)
PROC: 0SG1071 Fusion of 2 or more Lumbar Vertebral Joints with Autologous Tissue Substitute, Posterior Approach, Posterior Column, Open Approach (ICD-10-PCS; 2024-09-22 08:50)
PROC: 0SG1071 Fusion of 2 or more Lumbar Vertebral Joints with Autologous Tissue Substitute, Posterior Approach, Posterior Column, Open Approach (ICD-10-PCS; CPT 27280; 2024-09-22 08:50)
PROC: 0SG1071 Fusion of 2 or more Lumbar Vertebral Joints with Autologous Tissue Substitute, Posterior Approach, Posterior Column, Open Approach (ICD-10-PCS; CPT 63005; 2024-09-22 08:50)
DX: M48.062 Spinal stenosis, lumbar region with neurogenic claudication (principal); M51.17 Intervertebral disc disorders with radiculopathy, lumbosacral region; M43.16 Spondylolisthesis, lumbar region; I12.9 Hypertensive chronic kidney disease with stage 1 through stage 4 chronic kidney disease, or unspecified chronic kidney disease; N18.31 Chronic kidney disease, stage 3a; F17.210 Nicotine dependence, cigarettes, uncomplicated; K21.9 Gastro-esophageal reflux disease without esophagitis; E03.9 Hypothyroidism, unspecified; Z79.82 Long term (current) use of aspirin; F41.9 Anxiety disorder, unspecified; J43.9 Emphysema, unspecified; N39.46 Mixed incontinence; F32.4 Major depressive disorder, single episode, in partial remission; E78.5 Hyperlipidemia, unspecified
CPT/HCPCS: 36415; 51702; 72020; 72100; 76000; 80053; 81001; 85025; 86850; 86900; 97110; 97161; C1713; C1734; J0330; J0690; J1100; J1171; J1644; J1885; J2250; J2270; J2371; J2405; J2704; J3010; J3370; J3490; J7030; J7120; J8597; J9999

== ENCOUNTER → 2024-09-30 08:12 | Outpatient (BNVA) | payer MEDICARE, MEDICAID, SELFPAY | PROVIDERS: PCP Family Medicine; Visit Provider Orthopaedic Surgery | DX: Z98.1 Arthrodesis status (principal) | CPT/HCPCS: 99024 ==

== ENCOUNTER → 2024-10-07 10:27 | Outpatient (BNVA) | payer MEDICARE, MEDICAID, SELFPAY | PROVIDERS: PCP Family Medicine; Visit Provider Orthopaedic Surgery | DX: Z98.1 Arthrodesis status (principal) | CPT/HCPCS: 99024 ==

== ENCOUNTER → 2024-11-04 09:56 | Outpatient (BNVA) | payer MEDICARE, MEDICAID, SELFPAY | PROVIDERS: PCP Family Medicine; Visit Provider Orthopaedic Surgery | DX: Z98.1 Arthrodesis status (principal) | CPT/HCPCS: 72100; 99024 ==

== ENCOUNTER → 2024-12-09 10:03 | Outpatient (BNVA) | payer MEDICARE, MEDICAID, SELFPAY | PROVIDERS: PCP Family Medicine; Visit Provider Orthopaedic Surgery | DX: Z98.1 Arthrodesis status (principal) | CPT/HCPCS: 72100; 99024 ==

== ENCOUNTER → 2025-01-15 12:16 | Outpatient (BNVA) | payer MEDICARE, MEDICAID, SELFPAY | PROVIDERS: PCP Family Medicine; Visit Provider Family Medicine | DX: N18.31 Chronic kidney disease, stage 3a (principal); I10 Essential (primary) hypertension; E78.2 Mixed hyperlipidemia; Z11.59 Encounter for screening for other viral diseases | CPT/HCPCS: 80061; 83540; 85025; 86803 ==

== ENCOUNTER 2025-03-10 11:15 | Outpatient (CLI) | payer OTHER, MEDICAID, SELFPAY | END 2025-03-10 11:16 | disposition home or self-care (01) | LOC: RAD 03-12 10:58 | PROVIDERS: PCP Family Medicine; Visit Provider Family Medicine | DX: M54.50 Low back pain, unspecified (principal); Z98.1 Arthrodesis status | CPT/HCPCS: 72100; 99213 ==

== ENCOUNTER → 2025-06-04 10:39 | Outpatient (BNVA) | payer MEDICARE, MEDICAID, SELFPAY | PROVIDERS: PCP Family Medicine; Visit Provider Orthopaedic Surgery | DX: Z47.89 Encounter for other orthopedic aftercare (principal); Z98.1 Arthrodesis status; M54.9 Dorsalgia, unspecified; G89.29 Other chronic pain | CPT/HCPCS: 72100; 99213 ==